=== PATIENT | male | born 1975 | race Two or more races ===

== ENCOUNTER 2023-05-30 18:56 | Inpatient (IN) | payer MEDICARE, MEDICAID ==
[~2023-05-30] VITALS: Ht 182.9 cm; Wt 97.9 kg
[2023-05-30 22:15] VITALS: BP 205/115; PULSE 68; RESP 20; TEMP 97.7; O2SAT 98
[2023-05-30] MEDS ORDERED: DEXTROSE (50%) 50ML SYRG IV PRN (22:15)
[2023-05-30] MEDS ORDERED: MORPHINE SULFATE INJ 2 MG/ml SYRG IV PRN (22:15)
[2023-05-30 22:18] VITALS: BP 169/79; PULSE 70; RESP 20; TEMP 97.7; O2SAT 98
[2023-05-30 23:07] LABS: Basophils # (auto) 0.1 10 ^3/uL (0-0.2); Lymphocytes # (auto) 1.7 10 ^3/uL (0.4-5.4); Monocytes # (auto) 0.7 10 ^3/uL (0-1.3); Nucleated Red Blood Cells % 0.1 %
[2023-05-30 23:09] LABS: Basophils % (auto) 0.5 % (0.0-2.0); Eosinophils # (auto) 0.2 10 ^3/uL (0-0.8); Eosinophils % (auto) 1.3 % (0.0-7.0); Hematocrit 28.7 % (41.0-53.0); Hemoglobin 8.8 g/dL (13.5-17.5); Lymphocytes % (auto) 14.3 % (10.0-50.0); Mean Corpuscular Hemoglobin 21.3 pg (28.0-32.0); Mean Corpuscular Hgb Conc. 30.5 g/dL (32.0-36.0); Mean Corpuscular Volume 69.6 fL (80.0-100.0); Monocytes % (auto) 5.6 % (0.0-12.0); Neutrophils # (auto) 9.5 10 ^3/uL (1.6-8.6); Neutrophils % (auto) 78.3 % (37.0-80.0); Red Blood Cells 4.12 10^6/uL (4.5-5.90); Red Cell Distribution Width 16.6 % (11.8-14.3); White Blood Cell 12.1 10^3/uL (4.4-10.8)
[2023-05-30 23:22] LABS: INR 1.09 (0.9-1.15); Partial Thromboplastin Time 29.1 SEC (24.5-34.5); Prothrombin Time 11.4 sec (9.3-11.8)
[2023-05-30 23:25] LABS: Albumin 3.5 g/dL (3.2-4.8); Alkaline Phosphatase 67 U/L (46-116); Anion Gap 13 (5-15); Aspartate Aminotransferase 20 U/L (13-40); BUN/Creatinine Ratio 3.1 (10.0-20.0); Blood Urea Nitrogen 43 mg/dL (9-23); Calcium 10.2 mg/dL (8.7-10.4); Carbon Dioxide 28 mmol/L (20-30); Chloride 94 mmol/L (98-107); Glucose 132 mg/dL (74-106); Potassium 3.9 mmol/L (3.5-5.1); Sodium 135 mmol/L (136-145)
[2023-05-30 23:26] LABS: Bilirubin, Total < 0.2 mg/dL (0.2-1.0)
[2023-05-30] MEDS: PIPERACILLIN-TAZOB 2.25GM 50 ML IV SCH (23:29)
[2023-05-30] MEDS: cloNIDine HCL 0.1 MG TAB PO ONE (23:30)
[2023-05-30] MEDS: ACCU-CHEK COMFORT CURVE STRIP VI SCH (23:31)
[2023-05-30] MEDS: InsuLIN REG 1unit/0.01ml Soln (100units/ml) SC SCH (23:32)
[2023-05-30 23:42] LABS: Alanine Aminotransferase < 9 U/L (7-40)
[2023-05-31] VITALS (7 sets, daily range): BP systolic 142–209; BP diastolic 82–93; PULSE 69–89; RESP 16–20; TEMP 97.6–98.8; O2SAT 92–98
[2023-05-31] MEDS ORDERED: MEGE1SUS5 PO (07:09)
[2023-05-31] MEDS ORDERED: GLIP5TAB12 PO (07:09)
[2023-05-31] MEDS ORDERED: CALC0.25 PO (07:09)
[2023-05-31] MEDS ORDERED: NIFE90TA75 PO (07:09)
[2023-05-31] MEDS ORDERED: LANT1000 PO (07:09)
[2023-05-31] MEDS ORDERED: SPIR100T4 PO (07:09)
[2023-05-31] MEDS ORDERED: METO2.5T PO (07:09)
[2023-05-31] MEDS ORDERED: MET50T PO (07:09)
[2023-05-31] MEDS ORDERED: LOSA100T58 PO (07:09)
[2023-05-31] MEDS ORDERED: POTA1TAB61 PO (07:09)
[2023-05-31] MEDS: ENALAPRILAT 1.25 MG/ML-1ML VIAL IV ONE (08:11)
[2023-05-31 10:51] LABS: Basophils # (auto) 0.1 10 ^3/uL (0-0.2); Hematocrit 26.1 % (41.0-53.0); Monocytes # (auto) 0.7 10 ^3/uL (0-1.3); Nucleated Red Blood Cells % 0.1 %
[2023-05-31 10:53] LABS: Basophils % (auto) 0.7 % (0.0-2.0); Eosinophils # (auto) 0.3 10 ^3/uL (0-0.8); Eosinophils % (auto) 2.4 % (0.0-7.0); Lymphocytes # (auto) 1.5 10 ^3/uL (0.4-5.4); Lymphocytes % (auto) 14.9 % (10.0-50.0); Mean Corpuscular Hemoglobin 21.3 pg (28.0-32.0); Mean Corpuscular Hgb Conc. 30.8 g/dL (32.0-36.0); Mean Corpuscular Volume 69.2 fL (80.0-100.0); Neutrophils # (auto) 7.8 10 ^3/uL (1.6-8.6); Red Blood Cells 3.77 10^6/uL (4.5-5.90); Red Cell Distribution Width 16.2 % (11.8-14.3); White Blood Cell 10.4 10^3/uL (4.4-10.8)
[2023-05-31] MEDS: NIFEdipine ER 30 MG TAB PO SCH (10:55)
[2023-05-31] MEDS: LOSARTAN POTASSIUM 50 MG TAB PO SCH (10:56)
[2023-05-31] MEDS: SPIRONOLACTONE 25 MG TAB PO SCH (10:56)
[2023-05-31] MEDS: METOPROLOL TARTRATE 50 MG TAB PO SCH (10:57)
[2023-05-31 10:58] LABS: Anion Gap 9 (5-15); Carbon Dioxide 32 mmol/L (20-30); Chloride 96 mmol/L (98-107); Potassium 3.9 mmol/L (3.5-5.1); Sodium 137 mmol/L (136-145)
[2023-05-31 10:59] LABS: Calcium 9.3 mg/dL (8.5-10.1)
[2023-05-31 11:04] LABS: BUN/Creatinine Ratio 3.5 (10.0-20.0); Blood Urea Nitrogen 50 mg/dL (9-23); Glucose 122 mg/dL (74-106)
[2023-05-31] MEDS ORDERED: PERITONEAL DIALYSIS 2.5% SOLN 2,000 ML IP SCH (18:00)
[2023-05-31] MEDS: PERITONEAL DIALYSIS 2.5% SOLN 2,000 ML IP SCH (20:45)
[2023-06-01] VITALS (8 sets, daily range): BP systolic 135–159; BP diastolic 73–97; PULSE 66–79; RESP 12–18; TEMP 98–98.4; O2SAT 90–99
[2023-06-01 06:27] LABS: Calcium 8.8 mg/dL (8.7-10.4); Chloride 93 mmol/L (98-107); Potassium 3.8 mmol/L (3.5-5.1); Sodium 135 mmol/L (136-145)
[2023-06-01 06:28] LABS: Anion Gap 11 (5-15); Carbon Dioxide 31 mmol/L (20-30)
[2023-06-01 06:29] LABS: Basophils # (auto) 0.1 10 ^3/uL (0-0.2); Eosinophils # (auto) 0.3 10 ^3/uL (0-0.8); Lymphocytes % (auto) 16.5 % (10.0-50.0); Monocytes # (auto) 0.8 10 ^3/uL (0-1.3); Neutrophils # (auto) 7.8 10 ^3/uL (1.6-8.6); Nucleated Red Blood Cells % 0.1 %
[2023-06-01 06:31] LABS: Basophils % (auto) 0.7 % (0.0-2.0); Eosinophils % (auto) 2.4 % (0.0-7.0); Hematocrit 26.1 % (41.0-53.0); Hemoglobin 8.1 g/dL (13.5-17.5); Lymphocytes # (auto) 1.7 10 ^3/uL (0.4-5.4); Mean Corpuscular Hemoglobin 21.2 pg (28.0-32.0); Mean Corpuscular Hgb Conc. 31.1 g/dL (32.0-36.0); Mean Corpuscular Volume 68.1 fL (80.0-100.0); Monocytes % (auto) 7.3 % (0.0-12.0); Neutrophils % (auto) 73.1 % (37.0-80.0); Red Blood Cells 3.84 10^6/uL (4.5-5.90); Red Cell Distribution Width 15.9 % (11.8-14.3); White Blood Cell 10.6 10^3/uL (4.4-10.8)
[2023-06-01 06:34] LABS: BUN/Creatinine Ratio 3.6 (10.0-20.0); Blood Urea Nitrogen 53 mg/dL (9-23); Glucose 131 mg/dL (74-106)
[2023-06-01 07:51] LABS: Platelet Estimate Adequate; Target Cell FEW
[2023-06-01 07:52] LABS: Hypochromia Moderate
[2023-06-01 07:53] LABS: Anisocytosis Slight
[2023-06-01] MEDS: PERITONEAL DIALYSIS 2.5% SOLN 2,000 ML IP SCH (13:00)
[2023-06-02] VITALS (7 sets, daily range): BP systolic 145–187; BP diastolic 91–98; PULSE 70–85; RESP 16–21; TEMP 97.6–98.6; O2SAT 92–99
[2023-06-02 06:11] LABS: Chloride 93 mmol/L (98-107); Potassium 3.4 mmol/L (3.5-5.1); Sodium 137 mmol/L (136-145)
[2023-06-02 06:12] LABS: Anion Gap 12 (5-15); Carbon Dioxide 32 mmol/L (20-30)
[2023-06-02 06:13] LABS: Basophils # (auto) 0.1 10 ^3/uL (0-0.2); Eosinophils # (auto) 0.3 10 ^3/uL (0-0.8); Hemoglobin 8.5 g/dL (13.5-17.5); Lymphocytes # (auto) 1.9 10 ^3/uL (0.4-5.4); Nucleated Red Blood Cells % 0.1 %
[2023-06-02 06:16] LABS: Eosinophils % (auto) 3.1 % (0.0-7.0); Hematocrit 26.9 % (41.0-53.0); Lymphocytes % (auto) 19.7 % (10.0-50.0); Mean Corpuscular Hemoglobin 21.6 pg (28.0-32.0); Mean Corpuscular Hgb Conc. 31.5 g/dL (32.0-36.0); Mean Corpuscular Volume 68.5 fL (80.0-100.0); Monocytes # (auto) 0.7 10 ^3/uL (0-1.3); Neutrophils # (auto) 6.7 10 ^3/uL (1.6-8.6); Neutrophils % (auto) 69.2 % (37.0-80.0); Red Blood Cells 3.93 10^6/uL (4.5-5.90); Red Cell Distribution Width 16.4 % (11.8-14.3); White Blood Cell 9.7 10^3/uL (4.4-10.8)
[2023-06-02 06:17] LABS: BUN/Creatinine Ratio 3.8 (10.0-20.0); Blood Urea Nitrogen 54 mg/dL (9-23); Glucose 137 mg/dL (74-106)
[2023-06-02] MEDS ORDERED: VANCOMYCIN PER PHARMACY 0 MG IV SCH (11:45)
[2023-06-02 12:35] LABS: Urine Bacteria NONE SEEN /hpf (None Seen); Urine Blood Negative /uL (Negative); Urine Clarity Clear (Clear); Urine Color Yellow (Yellow); Urine Protein, UAD 3+ (Negative); Urine Specific Gravity 1.015 (1.001-1.035); Urine Urobilinogen Normal (Negative); Urine WBC 4 /hpf (0 - 3); Urine pH 7.5 (5.0-8.0)
[2023-06-02 12:39] LABS: Platelet Estimate Adequate
[2023-06-02 12:44] LABS: Amphetamine Screen, Urine Neg (NEGATIVE); Barbiturate Scree,Urine Neg (NEGATIVE); Benzodiazephine Screen, Urine Neg (NEGATIVE); Cocaine Screen, Urine Neg (NEGATIVE); Opiate Scree,Urine Neg (NEGATIVE)
[2023-06-02 12:45] LABS: Cannabinoid Screen, Urine Neg (NEGATIVE); Phencyclidine Screen, Urine Neg (NEGATIVE)
[2023-06-02 12:49] LABS: Hypochromia Moderate; Target Cell FEW
[2023-06-02] MEDS: VANCOMYCIN 1GM/200ML 200 ML IV ONE ×2 (13:30→13:31)
[2023-06-02] MEDS: ASPirin 81 mg TAB PO SCH (13:30)
[2023-06-02 15:16] LABS: Erythrocyte Sedimentation Rate 113 mm/hr (0-20)
[2023-06-02] MEDS: VANCOMYCIN 500 MG in D5W 5% 100 ML IV ONE (16:01)
[2023-06-02] MEDS ORDERED: GAB100C PO (16:15)
[2023-06-02] MEDS ORDERED: HYDR-4298 PO (16:15)
[2023-06-02] MEDS ORDERED: SEVE800T10 PO (16:15)
[2023-06-02] MEDS ORDERED: SITA25TA3 PO (16:15)
[2023-06-02] MEDS ORDERED: CALC667C PO (16:15)
[2023-06-02] MEDS ORDERED: METO2.5T PO (16:15)
[2023-06-02 16:20] LABS: Triglycerides 77 mg/dL (< 150)
[2023-06-02 16:21] LABS: LDL Cholesterol 76 mg/dL (< 100)
[2023-06-02 16:22] LABS: Cholesterol 124 mg/dL (< 200); HDL Cholesterol 33 mg/dL (40-59)
[2023-06-02] MEDS: CALCIUM ACETATE 667 MG CAP PO SCH (18:01)
[2023-06-02] MEDS: PERITONEAL DIALYSIS 2.5% SOLN 2,000 ML IP SCH (21:47)
[2023-06-02] MEDS: ATORVASTATIN 20 MG TAB PO SCH (21:48)
[2023-06-02] MEDS: CARVEDILOL 12.5 MG TAB PO SCH (21:48)
[2023-06-02] MEDS: GABAPENTIN 100 MG CAP PO SCH (21:48)
[2023-06-03] VITALS (11 sets, daily range): BP systolic 142–167; BP diastolic 69–94; PULSE 77–84; RESP 12–20; TEMP 97.7–99.5; O2SAT 96–100
[2023-06-03 06:21] LABS: Basophils # (auto) 0.1 10 ^3/uL (0-0.2); Eosinophils # (auto) 0.3 10 ^3/uL (0-0.8); Monocytes # (auto) 0.9 10 ^3/uL (0-1.3); Nucleated Red Blood Cells % 0.1 %
[2023-06-03 06:23] LABS: Basophils % (auto) 0.8 % (0.0-2.0); Eosinophils % (auto) 2.4 % (0.0-7.0); Hematocrit 25.8 % (41.0-53.0); Lymphocytes # (auto) 2.1 10 ^3/uL (0.4-5.4); Lymphocytes % (auto) 18.7 % (10.0-50.0); Mean Corpuscular Hemoglobin 21.5 pg (28.0-32.0); Mean Corpuscular Hgb Conc. 31.2 g/dL (32.0-36.0); Mean Corpuscular Volume 68.8 fL (80.0-100.0); Monocytes % (auto) 8.5 % (0.0-12.0); Neutrophils # (auto) 7.7 10 ^3/uL (1.6-8.6); Neutrophils % (auto) 69.6 % (37.0-80.0); Red Blood Cells 3.74 10^6/uL (4.5-5.90); Red Cell Distribution Width 16.4 % (11.8-14.3)
[2023-06-03 06:40] LABS: Albumin 3.4 g/dL (3.2-4.8); Alkaline Phosphatase 65 U/L (46-116); Anion Gap 12 (5-15); Aspartate Aminotransferase 18 U/L (13-40); BUN/Creatinine Ratio 3.9 (10.0-20.0); Blood Urea Nitrogen 52 mg/dL (9-23); Calcium 8.9 mg/dL (8.7-10.4); Carbon Dioxide 31 mmol/L (20-30); Chloride 93 mmol/L (98-107); Creatine Kinase IFCC 246 U/L (46-171); Glucose 105 mg/dL (74-106); Magnesium 2.2 mg/dL (1.6-2.6); Potassium 3.4 mmol/L (3.5-5.1); Sodium 136 mmol/L (136-145)
[2023-06-03 06:41] LABS: Bilirubin, Total < 0.2 mg/dL (0.2-1.0); Phosphorus 5.3 mg/dL (2.4-5.1); Total Protein 7.6 g/dL (5.7-8.2)
[2023-06-03 06:47] LABS: Alanine Aminotransferase < 9 U/L (7-40)
[2023-06-03 07:12] LABS: CRP High Sensitivity 8.66 mg/dL (<1.0)
[2023-06-03] MEDS: LIDOCAINE 2%HCL (LOCAL ANESTH.) INJ 20ML MDV ONE (07:38)
[2023-06-03] MEDS: IODIXANOL 320MG/ML 100ML BTL IV ONE (07:39)
[2023-06-03] MEDS: IOHEXOL 350 MG/ML 100ML IJ ONE (07:39)
[2023-06-03] MEDS: HEPARIN IN NS 1000Units/500mL 1,500 ML ONE (07:39)
[2023-06-03] MEDS: CALCITRIOL 0.25 MCG CAP PO SCH (08:35)
[2023-06-03] MEDS: fentaNYL CITRATE 100 MCG/2 ML VL ONE (10:52)
[2023-06-03] MEDS: ANGIOMAX 250 MG VIAL IV ONE (10:52)
[2023-06-03] MEDS: SODIUM CHL 0.9% 50 ML ONE (10:53)
[2023-06-03] MEDS: MIDAZOLAM HCL 2MG/2ML 2ml VIAL (1mg/ml) ONE (10:53)
[2023-06-03] MEDS: ASPirin 81 mg TAB ONE (13:08)
[2023-06-03] MEDS: hydrALAZINE HCL 20 MG/ML VL ONE (13:08)
[2023-06-03] MEDS: CLOPIDOGREL BISULFATE 75 MG TAB ONE (13:08)
[2023-06-03] MEDS: POTASSIUM CHLORIDE 40 MEQ, LIDOCAINE 1% (LOCAL ANESTH.) 4 ML in SODIUM CHL 0.9% 250 ML IV ONE (17:40)
[2023-06-04] VITALS (8 sets, daily range): BP systolic 124–175; BP diastolic 69–91; PULSE 75–108; RESP 17–20; TEMP 97.8–98.8; O2SAT 91–98
[2023-06-04 07:04] LABS: Anion Gap 10 (5-15); Carbon Dioxide 31 mmol/L (20-30); Chloride 93 mmol/L (98-107); Potassium 4.1 mmol/L (3.5-5.1); Sodium 134 mmol/L (136-145)
[2023-06-04 07:05] LABS: Calcium 8.6 mg/dL (8.5-10.1)
[2023-06-04 07:10] LABS: BUN/Creatinine Ratio 3.8 (10.0-20.0); Blood Urea Nitrogen 53 mg/dL (9-23); Glucose 81 mg/dL (74-106)
[2023-06-04 07:20] LABS: Basophils # (auto) 0.1 10 ^3/uL (0-0.2); Eosinophils # (auto) 0.1 10 ^3/uL (0-0.8); Lymphocytes # (auto) 1.8 10 ^3/uL (0.4-5.4); Nucleated Red Blood Cells % 0.1 %
[2023-06-04 07:24] LABS: Eosinophils % (auto) 1.3 % (0.0-7.0); Hematocrit 25.5 % (41.0-53.0); Hemoglobin 8.1 g/dL (13.5-17.5); Lymphocytes % (auto) 18.9 % (10.0-50.0); Mean Corpuscular Hemoglobin 21.5 pg (28.0-32.0); Mean Corpuscular Hgb Conc. 31.7 g/dL (32.0-36.0); Mean Corpuscular Volume 67.8 fL (80.0-100.0); Monocytes # (auto) 0.6 10 ^3/uL (0-1.3); Monocytes % (auto) 6.5 % (0.0-12.0); Neutrophils # (auto) 7.1 10 ^3/uL (1.6-8.6); Neutrophils % (auto) 72.3 % (37.0-80.0); Red Blood Cells 3.76 10^6/uL (4.5-5.90); Red Cell Distribution Width 16.8 % (11.8-14.3); White Blood Cell 9.8 10^3/uL (4.4-10.8)
[2023-06-04 08:22] LABS: Platelet Estimate Adequate; Target Cell MODERATE
[2023-06-04 08:27] LABS: Hypochromia Moderate
[2023-06-04] MEDS: CLOPIDOGREL BISULFATE 75 MG TAB PO SCH (10:26)
[2023-06-04] MEDS: PERITONEAL DIALYSIS 2.5% SOLN 2,000 ML IP SCH (19:00)
[2023-06-04] MEDS: ONDANSETRON HCL 4 MG/2 ML VIAL IV PRN (22:06)
[2023-06-05] VITALS (9 sets, daily range): BP systolic 132–162; BP diastolic 61–84; PULSE 72–85; RESP 18; TEMP 98.2–99.6; O2SAT 92–97
[2023-06-05 06:09] LABS: Basophils # (auto) 0.1 10 ^3/uL (0-0.2); Eosinophils # (auto) 0.2 10 ^3/uL (0-0.8); Eosinophils % (auto) 2.2 % (0.0-7.0); Monocytes # (auto) 0.8 10 ^3/uL (0-1.3); Nucleated Red Blood Cells % 0.1 %
[2023-06-05 06:13] LABS: Basophils % (auto) 1.1 % (0.0-2.0); Hematocrit 24.3 % (41.0-53.0); Hemoglobin 7.9 g/dL (13.5-17.5); Lymphocytes % (auto) 22.1 % (10.0-50.0); Mean Corpuscular Hemoglobin 22.2 pg (28.0-32.0); Mean Corpuscular Hgb Conc. 32.4 g/dL (32.0-36.0); Mean Corpuscular Volume 68.4 fL (80.0-100.0); Monocytes % (auto) 8.8 % (0.0-12.0); Neutrophils # (auto) 5.8 10 ^3/uL (1.6-8.6); Neutrophils % (auto) 65.8 % (37.0-80.0); Red Blood Cells 3.55 10^6/uL (4.5-5.90); Red Cell Distribution Width 16.6 % (11.8-14.3); White Blood Cell 8.9 10^3/uL (4.4-10.8)
[2023-06-05 06:22] LABS: Anion Gap 10 (5-15); Calcium 8.9 mg/dL (8.5-10.1); Carbon Dioxide 32 mmol/L (20-30); Chloride 93 mmol/L (98-107); Sodium 135 mmol/L (136-145)
[2023-06-05 06:28] LABS: BUN/Creatinine Ratio 3.9 (10.0-20.0); Blood Urea Nitrogen 55 mg/dL (9-23); Glucose 73 mg/dL (74-106)
[2023-06-05] MEDS ORDERED: fentaNYL CITRATE 100 MCG/2 ML VL ONE (09:20)
[2023-06-05] MEDS ORDERED: PROPOFOL 10 MG/ML 20 ML IV ONE (09:40)
[2023-06-05] MEDS: ROPIVACAINE 0.5% (5MG/ML) 20ML AMPULE IJ ONE ×2 (09:47→11:19)
[2023-06-05] MEDS: ceFAZolin 1GM VL ONE (10:20)
[2023-06-05] MEDS: BACITRACIN TOP OINT 1 UD PKG TOP ONE (10:20)
[2023-06-05] MEDS ORDERED: ONDANSETRON HCL 4 MG/2 ML VIAL IV ONE (10:45)
[2023-06-05] MEDS ORDERED: HYDROmorphone HCL 2 MG/ML VL/or syr IV PRN (10:45)
[2023-06-05] MEDS: ceFAZolin 2 GM/D5W50ml 50 ML IV ONE (11:20)
[2023-06-05] MEDS ORDERED: PERITONEAL DIALYSIS 2.5% SOLN 2,000 ML IP SCH (16:00)
[2023-06-06] VITALS (7 sets, daily range): BP systolic 149–175; BP diastolic 5–81; PULSE 81–85; RESP 14–17; TEMP 98.1–100; O2SAT 95–98
[2023-06-06 06:42] LABS: Basophils # (auto) 0.1 10 ^3/uL (0-0.2); Basophils % (auto) 1.1 % (0.0-2.0); Eosinophils # (auto) 0.2 10 ^3/uL (0-0.8); Hematocrit 23.9 % (41.0-53.0); Lymphocytes # (auto) 2.1 10 ^3/uL (0.4-5.4); Monocytes # (auto) 0.8 10 ^3/uL (0-1.3); Monocytes % (auto) 7.9 % (0.0-12.0); Neutrophils # (auto) 7.1 10 ^3/uL (1.6-8.6); Neutrophils % (auto) 68.4 % (37.0-80.0); Nucleated Red Blood Cells % 0.1 %; White Blood Cell 10.3 10^3/uL (4.4-10.8)
[2023-06-06 06:44] LABS: Eosinophils % (auto) 2.2 % (0.0-7.0); Hemoglobin 7.6 g/dL (13.5-17.5); Lymphocytes % (auto) 20.4 % (10.0-50.0); Mean Corpuscular Volume 68.6 fL (80.0-100.0); Red Blood Cells 3.48 10^6/uL (4.5-5.90); Red Cell Distribution Width 16.3 % (11.8-14.3)
[2023-06-06 06:49] LABS: Albumin 3.2 g/dL (3.2-4.8); Alkaline Phosphatase 66 U/L (46-116); Anion Gap 13 (5-15); Aspartate Aminotransferase 17 U/L (13-40); Blood Urea Nitrogen 59 mg/dL (9-23); Calcium 8.5 mg/dL (8.5-10.1); Carbon Dioxide 27 mmol/L (20-30); Chloride 91 mmol/L (98-107); Glucose 114 mg/dL (74-106); Potassium 4.5 mmol/L (3.5-5.1); Sodium 131 mmol/L (136-145)
[2023-06-06 06:50] LABS: Bilirubin, Total < 0.2 mg/dL (0.2-1.0); Total Protein 7.2 g/dL (5.7-8.2)
[2023-06-06 07:00] LABS: Alanine Aminotransferase < 9 U/L (7-40)
[2023-06-06] MEDS ORDERED: DOXY1CAP57 PO (12:51)
[2023-06-06] MEDS ORDERED: CLIN300C70 PO (12:51)
== END 2023-06-06 15:35 | disposition home or self-care (01) | DRG 617 ==
LOC: WEST WING 19:25 → TELE-WESTW 06-04 16:12
PROVIDERS: ADMIT Internal Medicine; ATTEND Student in an Organized Health Care Education/Training Program
PROC: 3E1M39Z Irrigation of Peritoneal Cavity using Dialysate, Percutaneous Approach (ICD-10-PCS; 2023-05-31)
PROC: 3E1M39Z Irrigation of Peritoneal Cavity using Dialysate, Percutaneous Approach (ICD-10-PCS; 2023-06-01)
PROC: 3E1M39Z Irrigation of Peritoneal Cavity using Dialysate, Percutaneous Approach (ICD-10-PCS; 2023-06-02)
PROC: 047M3DZ Dilation of Right Popliteal Artery with Intraluminal Device, Percutaneous Approach (ICD-10-PCS; principal; 2023-06-03)
PROC: 047T3ZZ Dilation of Right Peroneal Artery, Percutaneous Approach (ICD-10-PCS; 2023-06-03)
PROC: B44LZZZ Ultrasonography of Femoral Artery (ICD-10-PCS; 2023-06-03)
PROC: B41F1ZZ Fluoroscopy of Right Lower Extremity Arteries using Low Osmolar Contrast (ICD-10-PCS; 2023-06-03)
PROC: 3E1M39Z Irrigation of Peritoneal Cavity using Dialysate, Percutaneous Approach (ICD-10-PCS; 2023-06-04)
PROC: 0Y6P0Z0 Detachment at Right 1st Toe, Complete, Open Approach (ICD-10-PCS; 2023-06-05)
PROC: 0Y6R0Z0 Detachment at Right 2nd Toe, Complete, Open Approach (ICD-10-PCS; 2023-06-05)
PROC: 3E1M39Z Irrigation of Peritoneal Cavity using Dialysate, Percutaneous Approach (ICD-10-PCS; 2023-06-05)
DX: E11.621 Type 2 diabetes mellitus with foot ulcer (principal); I12.0 Hypertensive chronic kidney disease with stage 5 chronic kidney disease or end stage renal disease; I70.261 Atherosclerosis of native arteries of extremities with gangrene, right leg; N18.6 End stage renal disease; D63.1 Anemia in chronic kidney disease; L97.519 Non-pressure chronic ulcer of other part of right foot with unspecified severity; E11.22 Type 2 diabetes mellitus with diabetic chronic kidney disease; R79.89 Other specified abnormal findings of blood chemistry; E21.1 Secondary hyperparathyroidism, not elsewhere classified; E66.9 Obesity, unspecified; Z99.2 Dependence on renal dialysis; Z79.899 Other long term (current) drug therapy; Z82.5 Family history of asthma and other chronic lower respiratory diseases; Z68.29 Body mass index [BMI] 29.0-29.9, adult; Z98.61 Coronary angioplasty status; E83.39 Other disorders of phosphorus metabolism
CPT/HCPCS: 36415; 37226; 37228; 71045; 73718; 75710; 76937; 80048; 80053; 80061; 80202; 80307; 81001; 82306; 82550; 82962; 83036; 83735; 84100; 84443; 85025; 85610; 85652; 85730; 86141; 86850; 86900; 86901; 87040; 87081; 87086; 93306; 93925; 93926; 99152; C1769; C1894; G0378; J0690; J1815; J2001; J2250; J2405; J2543; J2704; J7060; Q9967

== ENCOUNTER 2023-07-15 16:08 | Inpatient (IN) | payer MEDICARE, MEDICAID ==
[~2023-07-15] VITALS: Ht 182.9 cm; Wt 101.0 kg
[~2023-07-15 16:08] MED LIST: CALC0.25 PO; CALC667C PO; CEFT1PM IV; GAB100C PO; GLIP5TAB21 PO; HYDR-4298 PO; LANT1000 PO; LOSA-535 PO; MEGE1SUS5 PO; MET50T PO; METO2.5T PO; NIFE90TA75 PO; SEVE800T10 PO; SITA25TA3 PO; SPIR100T4 PO
[2023-07-15] MEDS ORDERED: DEXTROSE (50%) 50ML SYRG IV PRN (21:15)
[2023-07-15 21:32] LABS: Basophils # (auto) 0.1 10 ^3/uL (0-0.2); Eosinophils # (auto) 0.1 10 ^3/uL (0-0.8); Hemoglobin 8.1 g/dL (13.5-17.5); Lymphocytes # (auto) 1.6 10 ^3/uL (0.4-5.4); Red Cell Distribution Width 17.1 % (11.8-14.3)
[2023-07-15 21:34] LABS: Basophils % (auto) 1.1 % (0.0-2.0); Hematocrit 26.7 % (41.0-53.0); Lymphocytes % (auto) 15.8 % (10.0-50.0); Mean Corpuscular Hemoglobin 20.8 pg (28.0-32.0); Mean Corpuscular Hgb Conc. 30.3 g/dL (32.0-36.0); Mean Corpuscular Volume 68.4 fL (80.0-100.0); Monocytes # (auto) 1.1 10 ^3/uL (0-1.3); Monocytes % (auto) 10.8 % (0.0-12.0); Neutrophils # (auto) 7.2 10 ^3/uL (1.6-8.6); Neutrophils % (auto) 71.3 % (37.0-80.0); Red Blood Cells 3.91 10^6/uL (4.5-5.90)
[2023-07-15 21:42] LABS: Albumin 3.1 g/dL (3.2-4.8); Alkaline Phosphatase 83 U/L (46-116); Anion Gap 11 (5-15); Aspartate Aminotransferase 19 U/L (13-40); BUN/Creatinine Ratio 3.8 (10.0-20.0); Blood Urea Nitrogen 52 mg/dL (9-23); Calcium 8.5 mg/dL (8.5-10.1); Carbon Dioxide 25 mmol/L (20-30); Chloride 98 mmol/L (98-107); Glucose 88 mg/dL (74-106); Potassium 4.5 mmol/L (3.5-5.1); Sodium 134 mmol/L (136-145)
[2023-07-15 21:43] LABS: Bilirubin, Total < 0.2 mg/dL (0.2-1.0); Total Protein 8.1 g/dL (5.7-8.2)
[2023-07-15 21:46] LABS: Alanine Aminotransferase < 9 U/L (7-40)
[2023-07-15 21:48] LABS: INR 1.23 (0.9-1.15); Prothrombin Time 12.8 sec (9.3-11.8)
[2023-07-15] MEDS: MORPHINE SULFATE 4 MG/ML SYR/VIAL IV ONE (23:08)
[2023-07-15] MEDS: CLINDAMYCIN 600MG IV 50 ML IV SCH (23:09)
[2023-07-15] MEDS: ONDANSETRON HCL 4 MG/2 ML VIAL IV PRN (23:09)
[2023-07-16 01:00] VITALS: PULSE 80; RESP 14; O2SAT 97
[2023-07-16] MEDS: ACCU-CHEK COMFORT CURVE STRIP VI SCH (01:22)
[2023-07-16] MEDS: InsuLIN REG 1unit/0.01ml Soln (100units/ml) SC SCH (01:23)
[2023-07-16] MEDS: MORPHINE SULFATE INJ 2 MG/ml SYRG IV PRN (04:36)
[2023-07-16 05:11] LABS: Chloride 98 mmol/L (98-107); Potassium 4.5 mmol/L (3.5-5.1); Sodium 135 mmol/L (136-145)
[2023-07-16 05:12] LABS: Anion Gap 10 (5-15); Calcium 8.6 mg/dL (8.7-10.4); Carbon Dioxide 27 mmol/L (20-30)
[2023-07-16 05:17] LABS: BUN/Creatinine Ratio 4.3 (10.0-20.0); Blood Urea Nitrogen 60 mg/dL (9-23); Glucose 105 mg/dL (74-106)
[2023-07-16] MEDS: hydrALAZINE HCL 20 MG/ML VL IV PRN (12:52)
[2023-07-16] MEDS: PIPERACILLIN-TAZOB 3.375GM 100 ML IV ONE (12:52)
[2023-07-16 14:07] VITALS: PULSE 87; RESP 20; O2SAT 96
[2023-07-16 15:49] VITALS: BP 166/84; PULSE 89; RESP 17; TEMP 97.6; O2SAT 98
[2023-07-16 16:54] VITALS: BP 166/84; PULSE 89; RESP 17; TEMP 97.6; O2SAT 98
[2023-07-16 18:27] LABS: % Iron Saturation 13.7 % (20-55)
[2023-07-16 20:00] VITALS: PULSE 92; RESP 20; O2SAT 95
[2023-07-16 21:43] VITALS: BP 179/89; PULSE 93; RESP 18; TEMP 99.2; O2SAT 94
[2023-07-16] MEDS: PIPERACILLIN-TAZOB 3.375GM 100 ML IV SCH (22:57)
[2023-07-16] MEDS: GABAPENTIN 100 MG CAP PO SCH (22:57)
[2023-07-16] MEDS: ATORVASTATIN 20 MG TAB PO SCH (22:57)
[2023-07-16] MEDS: METOPROLOL TARTRATE 50 MG TAB PO SCH (22:58)
[2023-07-16] MEDS: metOLazone 5 MG TAB PO SCH (22:58)
[2023-07-16] MEDS: hydrALAZINE HCL 25 MG TAB ONE ×2 (23:12→23:19)
[2023-07-16] MEDS: hydrALAZINE HCL 25 MG TAB PO SCH (23:20)
[2023-07-17] VITALS (8 sets, daily range): BP systolic 130–191; BP diastolic 75–94; PULSE 75–98; RESP 14–20; TEMP 97.9–100.2; O2SAT 93–100
[2023-07-17 06:26] LABS: Basophils # (auto) 0.1 10 ^3/uL (0-0.2); Basophils % (auto) 0.7 % (0.0-2.0); Eosinophils # (auto) 0.2 10 ^3/uL (0-0.8); Eosinophils % (auto) 1.6 % (0.0-7.0); Hematocrit 23.5 % (41.0-53.0); Hemoglobin 7.2 g/dL (13.5-17.5); Lymphocytes # (auto) 1.6 10 ^3/uL (0.4-5.4); Lymphocytes % (auto) 13.1 % (10.0-50.0); Mean Corpuscular Hemoglobin 21.2 pg (28.0-32.0); Mean Corpuscular Hgb Conc. 30.8 g/dL (32.0-36.0); Mean Corpuscular Volume 68.9 fL (80.0-100.0); Monocytes # (auto) 1.5 10 ^3/uL (0-1.3); Monocytes % (auto) 12.3 % (0.0-12.0); Neutrophils # (auto) 8.7 10 ^3/uL (1.6-8.6); Neutrophils % (auto) 72.3 % (37.0-80.0); Nucleated Red Blood Cells % 0.1 %; Red Blood Cells 3.41 10^6/uL (4.5-5.90)
[2023-07-17 06:32] LABS: Anion Gap 11 (5-15); Carbon Dioxide 26 mmol/L (20-30); Chloride 99 mmol/L (98-107); Sodium 136 mmol/L (136-145)
[2023-07-17 06:33] LABS: Calcium 8.3 mg/dL (8.7-10.4)
[2023-07-17 06:37] LABS: Glucose 97 mg/dL (74-106)
[2023-07-17 06:38] LABS: BUN/Creatinine Ratio 4.2 (10.0-20.0); Blood Urea Nitrogen 63 mg/dL (9-23)
[2023-07-17] MEDS: ACCU-CHEK COMFORT CURVE STRIP VI ONE (08:45)
[2023-07-17] MEDS ORDERED: HYDROmorphone HCL 2 MG/ML VL/or syr IV PRN ×2 (08:45)
[2023-07-17] MEDS: METOCLOPRAMIDE HCL 5MG/ml INJ 2ml VIAL IV ONE (08:45)
[2023-07-17] MEDS ORDERED: MORPHINE SULFATE INJ 2 MG/ml SYRG IV PRN (08:45)
[2023-07-17] MEDS: ceFAZolin 2 GM/D5W50ml 50 ML IV ONE (08:50)
[2023-07-17] MEDS ORDERED: ONDANSETRON HCL 4 MG/2 ML VIAL ONE (09:20)
[2023-07-17] MEDS ORDERED: MEPERIDINE HCL (50 MG/ML) 1 ML VIAL ONE (09:20)
[2023-07-17] MEDS ORDERED: PROPOFOL 10 MG/ML 20 ML IV ONE (09:20)
[2023-07-17] MEDS ORDERED: SODIUM CHLORIDE LOCK 10 ML ONE (09:20)
[2023-07-17] MEDS ORDERED: fentaNYL CITRATE 100 MCG/2 ML VL ONE (09:20)
[2023-07-17] MEDS ORDERED: MIDAZOLAM HCL 2MG/2ML 2ml VIAL (1mg/ml) ONE (09:20)
[2023-07-17] MEDS ORDERED: KETAMINE 50mg/ML 1ml syringe ONE (09:20)
[2023-07-17] MEDS: SPIRONOLACTONE 25 MG TAB PO SCH (10:00)
[2023-07-17] MEDS: ROPIVACAINE 0.5% (5MG/ML) 20ML AMPULE IJ ONE (10:04)
[2023-07-17] MEDS: LIDOCAINE 2%HCL (LOCAL ANESTH.) INJ 20ML MDV ONE (10:30)
[2023-07-17] MEDS: HEPARIN IN NS 1000Units/500mL 1,500 ML ONE (10:30)
[2023-07-17] MEDS: IODIXANOL 320MG/ML 100ML BTL IV ONE (10:30)
[2023-07-17] MEDS: NIFEdipine ER 30 MG TAB PO SCH (12:37)
[2023-07-17] MEDS: ASPirin 81 mg TAB PO SCH (12:38)
[2023-07-17] MEDS: CLOPIDOGREL BISULFATE 75 MG TAB PO SCH (12:38)
[2023-07-17] MEDS: LOSARTAN POTASSIUM 50 MG TAB PO SCH (12:38)
[2023-07-17] MEDS: cloNIDine HCL 0.1 MG TAB PO PRN (17:26)
[2023-07-18] VITALS (12 sets, daily range): BP systolic 105–147; BP diastolic 56–84; PULSE 72–86; RESP 12–17; TEMP 97.7–98.4; O2SAT 90–97
[2023-07-18 03:53] LABS: Urine Bacteria FEW /hpf (None Seen); Urine Blood TRACE /uL (Negative); Urine Budding Yeast OCCASIONAL /hpf (None Seen); Urine Clarity Clear (Clear); Urine Color Light-Yellow (Yellow); Urine Protein, UAD 3+ (Negative); Urine Specific Gravity 1.015 (1.001-1.035); Urine Urobilinogen 3 mg/dL (Negative); Urine WBC 2 /hpf (0 - 3)
[2023-07-18 05:49] LABS: Basophils # (auto) 0.1 10 ^3/uL (0-0.2); Basophils % (auto) 0.5 % (0.0-2.0); Eosinophils # (auto) 0.3 10 ^3/uL (0-0.8); Eosinophils % (auto) 2.4 % (0.0-7.0); Hematocrit 24.8 % (41.0-53.0); Hemoglobin 7.5 g/dL (13.5-17.5); Lymphocytes # (auto) 1.2 10 ^3/uL (0.4-5.4); Lymphocytes % (auto) 9.9 % (10.0-50.0); Mean Corpuscular Hemoglobin 20.7 pg (28.0-32.0); Mean Corpuscular Hgb Conc. 30.3 g/dL (32.0-36.0); Mean Corpuscular Volume 68.2 fL (80.0-100.0); Monocytes # (auto) 1.3 10 ^3/uL (0-1.3); Monocytes % (auto) 10.6 % (0.0-12.0); Neutrophils # (auto) 9.2 10 ^3/uL (1.6-8.6); Neutrophils % (auto) 76.6 % (37.0-80.0); Nucleated Red Blood Cells % 0.1 %; Red Blood Cells 3.64 10^6/uL (4.5-5.90); Red Cell Distribution Width 16.8 % (11.8-14.3)
[2023-07-18 06:02] LABS: Amphetamine Screen, Urine Neg (NEGATIVE)
[2023-07-18 06:03] LABS: Barbiturate Scree,Urine Neg (NEGATIVE)
[2023-07-18 06:04] LABS: Benzodiazephine Screen, Urine Neg (NEGATIVE); Cannabinoid Screen, Urine Neg (NEGATIVE); Cocaine Screen, Urine Neg (NEGATIVE); Opiate Scree,Urine Neg (NEGATIVE); Phencyclidine Screen, Urine Neg (NEGATIVE)
[2023-07-18 06:10] LABS: Anion Gap 12 (5-15); Carbon Dioxide 25 mmol/L (20-30); Chloride 98 mmol/L (98-107); Potassium 4.4 mmol/L (3.5-5.1); Sodium 135 mmol/L (136-145)
[2023-07-18 06:11] LABS: Calcium 8.4 mg/dL (8.7-10.4)
[2023-07-18 06:16] LABS: Blood Urea Nitrogen 57 mg/dL (9-23); Glucose 103 mg/dL (74-106); Magnesium 1.9 mg/dL (1.6-2.6)
[2023-07-18] MEDS: LIDOCAINE 2%HCL (LOCAL ANESTH.) INJ 20ML MDV ONE (07:29)
[2023-07-18] MEDS: IOHEXOL 350 MG/ML 100ML IJ ONE ×2 (07:29→07:30)
[2023-07-18] MEDS: GELATIN 1 SPONGE SIZE 50 TOP ONE (07:29)
[2023-07-18] MEDS: HEPARIN IN NS 1000Units/500mL 1,500 ML ONE (07:30)
[2023-07-18] MEDS: SODIUM CHL 0.9% 50 ML ONE (08:08)
[2023-07-18] MEDS: ANGIOMAX 250 MG VIAL IV ONE (08:08)
[2023-07-18] MEDS: MIDAZOLAM HCL 2MG/2ML 2ml VIAL (1mg/ml) ONE (08:08)
[2023-07-18] MEDS: fentaNYL CITRATE 100 MCG/2 ML VL ONE (08:08)
[2023-07-18] MEDS: IODIXANOL 320MG/ML 100ML BTL IV ONE ×2 (09:08→10:01)
[2023-07-18] MEDS: FUROSEMIDE 40 MG TAB PO SCH (12:20)
[2023-07-19] VITALS (8 sets, daily range): BP systolic 114–157; BP diastolic 65–78; PULSE 73–99; RESP 12–19; TEMP 98–99.4; O2SAT 91–99
[2023-07-19 05:42] LABS: Calcium 8.3 mg/dL (8.7-10.4); Chloride 95 mmol/L (98-107); Potassium 3.9 mmol/L (3.5-5.1); Sodium 133 mmol/L (136-145)
[2023-07-19 05:43] LABS: Anion Gap 12 (5-15); Carbon Dioxide 26 mmol/L (20-30)
[2023-07-19 05:48] LABS: Blood Urea Nitrogen 52 mg/dL (9-23); Glucose 136 mg/dL (74-106)
[2023-07-19 05:49] LABS: Magnesium 1.8 mg/dL (1.6-2.6)
[2023-07-19 05:54] LABS: Basophils # (auto) 0.1 10 ^3/uL (0-0.2); Eosinophils # (auto) 0.2 10 ^3/uL (0-0.8); Hemoglobin 7.3 g/dL (13.5-17.5); Lymphocytes # (auto) 1.2 10 ^3/uL (0.4-5.4); Mean Corpuscular Hgb Conc. 29.9 g/dL (32.0-36.0); Nucleated Red Blood Cells % 0.1 %
[2023-07-19 05:56] LABS: Basophils % (auto) 0.6 % (0.0-2.0); Eosinophils % (auto) 1.6 % (0.0-7.0); Hematocrit 24.5 % (41.0-53.0); Lymphocytes % (auto) 9.9 % (10.0-50.0); Mean Corpuscular Hemoglobin 20.2 pg (28.0-32.0); Mean Corpuscular Volume 67.4 fL (80.0-100.0); Monocytes # (auto) 1.3 10 ^3/uL (0-1.3); Monocytes % (auto) 10.8 % (0.0-12.0); Neutrophils # (auto) 9.4 10 ^3/uL (1.6-8.6); Neutrophils % (auto) 77.1 % (37.0-80.0); Red Blood Cells 3.63 10^6/uL (4.5-5.90); Red Cell Distribution Width 17.1 % (11.8-14.3); White Blood Cell 12.1 10^3/uL (4.4-10.8)
[2023-07-19] MEDS: EPOETIN ALFA-EPBX 10,000 UNIT/1ML VIAL SC ONE (22:18)
[2023-07-20] VITALS (8 sets, daily range): BP systolic 160–190; BP diastolic 85–119; PULSE 78–95; RESP 17–22; TEMP 97.9–99.7; O2SAT 93–100
[2023-07-20 05:35] LABS: Basophils # (auto) 0.1 10 ^3/uL (0-0.2); Basophils % (auto) 0.7 % (0.0-2.0); Eosinophils # (auto) 0.2 10 ^3/uL (0-0.8); Hemoglobin 7.9 g/dL (13.5-17.5); Monocytes # (auto) 0.9 10 ^3/uL (0-1.3)
[2023-07-20 05:37] LABS: Eosinophils % (auto) 1.7 % (0.0-7.0); Hematocrit 26.8 % (41.0-53.0); Lymphocytes # (auto) 1.2 10 ^3/uL (0.4-5.4); Lymphocytes % (auto) 9.9 % (10.0-50.0); Mean Corpuscular Hgb Conc. 29.7 g/dL (32.0-36.0); Mean Corpuscular Volume 67.3 fL (80.0-100.0); Neutrophils # (auto) 9.4 10 ^3/uL (1.6-8.6); Neutrophils % (auto) 79.7 % (37.0-80.0); Nucleated Red Blood Cells % 0.1 %; Red Blood Cells 3.98 10^6/uL (4.5-5.90); Red Cell Distribution Width 17.1 % (11.8-14.3); White Blood Cell 11.8 10^3/uL (4.4-10.8)
[2023-07-20 05:46] LABS: Chloride 94 mmol/L (98-107); Potassium 3.8 mmol/L (3.5-5.1); Sodium 131 mmol/L (136-145)
[2023-07-20 05:47] LABS: Anion Gap 11 (5-15); Calcium 8.2 mg/dL (8.5-10.1); Carbon Dioxide 26 mmol/L (20-30)
[2023-07-20 05:53] LABS: BUN/Creatinine Ratio 3.9 (10.0-20.0); Blood Urea Nitrogen 49 mg/dL (9-23); Glucose 153 mg/dL (74-106)
[2023-07-20 06:28] LABS: Hypochromia Slight; Platelet Estimate Adequate; Target Cell MODERATE
[2023-07-21 01:00] VITALS: BP 155/90; PULSE 78; RESP 20; TEMP 98.6; O2SAT 96
[2023-07-21 05:00] VITALS: BP 176/90; PULSE 77; RESP 20; TEMP 98.3; O2SAT 94
[2023-07-21 06:16] LABS: Basophils # (auto) 0.1 10 ^3/uL (0-0.2); Eosinophils # (auto) 0.2 10 ^3/uL (0-0.8); Eosinophils % (auto) 1.6 % (0.0-7.0); Hemoglobin 7.7 g/dL (13.5-17.5); Neutrophils # (auto) 8.2 10 ^3/uL (1.6-8.6); White Blood Cell 10.8 10^3/uL (4.4-10.8)
[2023-07-21 06:21] LABS: Chloride 94 mmol/L (98-107); Potassium 3.7 mmol/L (3.5-5.1); Sodium 133 mmol/L (136-145)
[2023-07-21 06:22] LABS: Anion Gap 12 (5-15); Carbon Dioxide 27 mmol/L (20-30)
[2023-07-21 06:23] LABS: Basophils % (auto) 0.7 % (0.0-2.0); Hematocrit 24.2 % (41.0-53.0); Lymphocytes # (auto) 1.4 10 ^3/uL (0.4-5.4); Lymphocytes % (auto) 13.2 % (10.0-50.0); Mean Corpuscular Hemoglobin 21.3 pg (28.0-32.0); Mean Corpuscular Hgb Conc. 31.7 g/dL (32.0-36.0); Mean Corpuscular Volume 67.2 fL (80.0-100.0); Monocytes # (auto) 0.9 10 ^3/uL (0-1.3); Monocytes % (auto) 8.4 % (0.0-12.0); Neutrophils % (auto) 76.1 % (37.0-80.0); Nucleated Red Blood Cells % 0.1 %; Red Blood Cells 3.59 10^6/uL (4.5-5.90); Red Cell Distribution Width 16.8 % (11.8-14.3)
[2023-07-21 06:27] LABS: BUN/Creatinine Ratio 3.9 (10.0-20.0); Blood Urea Nitrogen 51 mg/dL (9-23); Glucose 110 mg/dL (74-106)
[2023-07-21 09:00] VITALS: BP 174/85; PULSE 77; RESP 18; TEMP 98.1; O2SAT 96
[2023-07-21 13:00] VITALS: BP 165/95; PULSE 80; RESP 16; TEMP 98.3; O2SAT 98
[2023-07-21] MEDS: MICAFUNGIN SODIUM 100 MG in SODIUM CHL 0.9% 100 ML IV SCH (15:37)
[2023-07-21 17:00] VITALS: BP 148/73; PULSE 78; RESP 17; TEMP 98.1; O2SAT 97
[2023-07-21 21:00] VITALS: BP 168/88; PULSE 81; RESP 20; TEMP 98.1; O2SAT 95
[2023-07-22] VITALS (7 sets, daily range): BP systolic 142–175; BP diastolic 69–90; PULSE 66–77; RESP 16–22; TEMP 98–98.4; O2SAT 92–99
[2023-07-22 06:50] LABS: Basophils # (auto) 0.1 10 ^3/uL (0-0.2); Eosinophils # (auto) 0.1 10 ^3/uL (0-0.8); Eosinophils % (auto) 1.3 % (0.0-7.0); Hemoglobin 8.7 g/dL (13.5-17.5); Monocytes # (auto) 0.9 10 ^3/uL (0-1.3); Neutrophils % (auto) 75.3 % (37.0-80.0)
[2023-07-22 06:52] LABS: Basophils % (auto) 0.7 % (0.0-2.0); Hematocrit 27.9 % (41.0-53.0); Lymphocytes # (auto) 1.5 10 ^3/uL (0.4-5.4); Lymphocytes % (auto) 14.3 % (10.0-50.0); Mean Corpuscular Hemoglobin 21.1 pg (28.0-32.0); Mean Corpuscular Hgb Conc. 31.3 g/dL (32.0-36.0); Mean Corpuscular Volume 67.5 fL (80.0-100.0); Monocytes % (auto) 8.4 % (0.0-12.0); Neutrophils # (auto) 8.1 10 ^3/uL (1.6-8.6); Red Blood Cells 4.13 10^6/uL (4.5-5.90); White Blood Cell 10.7 10^3/uL (4.4-10.8)
[2023-07-22 07:04] LABS: Anion Gap 13 (5-15); Calcium 8.4 mg/dL (8.5-10.1); Carbon Dioxide 28 mmol/L (20-30); Chloride 93 mmol/L (98-107); Potassium 3.5 mmol/L (3.5-5.1); Sodium 134 mmol/L (136-145)
[2023-07-22 07:10] LABS: Glucose 77 mg/dL (74-106)
[2023-07-22 07:11] LABS: BUN/Creatinine Ratio 3.7 (10.0-20.0); Blood Urea Nitrogen 47 mg/dL (9-23)
[2023-07-22] MEDS ORDERED: CIPROFLOXACIN 400MG/200ML 200 ML IV ONE (09:45)
[2023-07-22] MEDS ORDERED: CIPROFLOXACIN 400MG/200ML 200 ML IV SCH (10:00)
[2023-07-22] MEDS ORDERED: CIPR-214 PO (11:27)
[2023-07-22] MEDS: Juven Orange Powder PACKET 27.5gm PO SCH (19:28)
[2023-07-22] MEDS: CIPROFLOXACIN 400MG/200ML 200 ML IV SCH (22:17)
[2023-07-23] VITALS (9 sets, daily range): BP systolic 124–149; BP diastolic 65–82; PULSE 68–80; RESP 16–18; TEMP 98–98.6; O2SAT 93–100
[2023-07-23 06:43] LABS: Basophils # (auto) 0.1 10 ^3/uL (0-0.2); Eosinophils # (auto) 0.2 10 ^3/uL (0-0.8)
[2023-07-23 06:44] LABS: Calcium 8.3 mg/dL (8.5-10.1); Chloride 93 mmol/L (98-107); Potassium 3.5 mmol/L (3.5-5.1); Sodium 132 mmol/L (136-145)
[2023-07-23 06:45] LABS: Anion Gap 11 (5-15); Basophils % (auto) 0.6 % (0.0-2.0); Carbon Dioxide 28 mmol/L (20-30); Eosinophils % (auto) 1.7 % (0.0-7.0); Hematocrit 28.1 % (41.0-53.0); Lymphocytes # (auto) 1.6 10 ^3/uL (0.4-5.4); Lymphocytes % (auto) 14.9 % (10.0-50.0); Mean Corpuscular Hemoglobin 20.9 pg (28.0-32.0); Mean Corpuscular Hgb Conc. 30.8 g/dL (32.0-36.0); Mean Corpuscular Volume 67.7 fL (80.0-100.0); Monocytes # (auto) 0.7 10 ^3/uL (0-1.3); Monocytes % (auto) 6.7 % (0.0-12.0); Neutrophils # (auto) 8.3 10 ^3/uL (1.6-8.6); Neutrophils % (auto) 76.1 % (37.0-80.0); Nucleated Red Blood Cells % 0.1 %; Red Blood Cells 4.15 10^6/uL (4.5-5.90); Red Cell Distribution Width 17.4 % (11.8-14.3); White Blood Cell 10.9 10^3/uL (4.4-10.8)
[2023-07-23 06:50] LABS: BUN/Creatinine Ratio 3.9 (10.0-20.0); Blood Urea Nitrogen 48 mg/dL (9-23); Glucose 105 mg/dL (74-106)
[2023-07-23 07:06] LABS: Hemoglobin 8.7 g/dL (13.5-17.5)
[2023-07-23 07:45] LABS: Magnesium 1.7 mg/dL (1.6-2.6)
[2023-07-23] MEDS: POTASSIUM EFFERVESENT TAB 25 MEQ PO ONE (10:29)
[2023-07-23] MEDS: MAGNESIUM OXIDE 400 MG TAB PO ONE (10:29)
[2023-07-23] MEDS: ACETAMINOPHEN 325 MG TAB PO PRN (16:49)
[2023-07-24] VITALS (11 sets, daily range): BP systolic 132–165; BP diastolic 72–108; PULSE 67–79; RESP 14–18; TEMP 97.5–98.7; O2SAT 92–98
[2023-07-24] MEDS ORDERED: D5W 5% IV SCH
[2023-07-24] MEDS ORDERED: CEFTOLOZANE TAZOB IV SCH
[2023-07-24 05:39] LABS: Basophils # (auto) 0.1 10 ^3/uL (0-0.2); Basophils % (auto) 0.6 % (0.0-2.0); Eosinophils # (auto) 0.1 10 ^3/uL (0-0.8); Eosinophils % (auto) 0.9 % (0.0-7.0); Hemoglobin 8.5 g/dL (13.5-17.5); Lymphocytes # (auto) 1.5 10 ^3/uL (0.4-5.4); Monocytes # (auto) 0.9 10 ^3/uL (0-1.3); Nucleated Red Blood Cells % 0.1 %
[2023-07-24 05:41] LABS: Anion Gap 12 (5-15); Carbon Dioxide 28 mmol/L (20-30); Chloride 93 mmol/L (98-107); Potassium 3.3 mmol/L (3.5-5.1); Sodium 133 mmol/L (136-145)
[2023-07-24 05:43] LABS: Hematocrit 26.9 % (41.0-53.0); Lymphocytes % (auto) 14.4 % (10.0-50.0); Mean Corpuscular Hemoglobin 21.3 pg (28.0-32.0); Mean Corpuscular Hgb Conc. 31.7 g/dL (32.0-36.0); Mean Corpuscular Volume 67.4 fL (80.0-100.0); Monocytes % (auto) 8.3 % (0.0-12.0); Neutrophils # (auto) 8.1 10 ^3/uL (1.6-8.6); Neutrophils % (auto) 75.8 % (37.0-80.0); Red Blood Cells 3.99 10^6/uL (4.5-5.90); Red Cell Distribution Width 17.2 % (11.8-14.3); White Blood Cell 10.6 10^3/uL (4.4-10.8)
[2023-07-24 05:46] LABS: Glucose 125 mg/dL (74-106)
[2023-07-24 05:47] LABS: BUN/Creatinine Ratio 3.6 (10.0-20.0); Blood Urea Nitrogen 45 mg/dL (9-23); Magnesium 1.7 mg/dL (1.6-2.6)
[2023-07-24] MEDS: ceFAZolin 2 GM/D5W50ml 50 ML IV ONE (09:10)
[2023-07-24] MEDS ORDERED: PROPOFOL 10 MG/ML 20 ML IV ONE ×2 (09:32→10:56)
[2023-07-24] MEDS ORDERED: KETAMINE 50mg/ML 1ml syringe ONE (09:32)
[2023-07-24] MEDS ORDERED: LIDOCAINE 1% INJ PF 5ML AMP ONE (09:32)
[2023-07-24] MEDS ORDERED: DexAMETHasone SOD PHOS 10MG/1ML VIAL INJ ONE (09:32)
[2023-07-24] MEDS ORDERED: GLYCOPYRROLATE 0.2 MG/ML 1ML VIAL ONE (09:32)
[2023-07-24] MEDS ORDERED: ONDANSETRON HCL 4 MG/2 ML VIAL ONE (09:32)
[2023-07-24] MEDS: ROPIVACAINE 0.5% (5MG/ML) 20ML AMPULE IJ ONE (09:53)
[2023-07-24] MEDS: ceFAZolin 1GM VL ONE (10:04)
[2023-07-24] MEDS ORDERED: HYDROmorphone HCL 2 MG/ML VL/or syr IV PRN (11:30)
[2023-07-24] MEDS ORDERED: hydrALAZINE HCL 20 MG/ML VL IV PRN (11:30)
[2023-07-24] MEDS ORDERED: fentaNYL CITRATE 100 MCG/2 ML VL IV PRN (11:30)
[2023-07-24] MEDS ORDERED: NALOXONE HCL 0.4 MG/ML VIAL IV PRN (11:30)
[2023-07-24] MEDS ORDERED: LABETALOL HCL 5 MG/ML 4ML SYRINGE IV PRN (11:30)
[2023-07-24] MEDS ORDERED: ONDANSETRON HCL 4 MG/2 ML VIAL IV PRN (11:30)
[2023-07-24] MEDS ORDERED: ePHEDrine SULFATE 50 MG/ML AMP IV PRN (11:30)
[2023-07-24] MEDS ORDERED: FLUMAZENIL 0.1 MG/ML INJ 10ML MDV IV PRN (11:30)
[2023-07-24] MEDS: MAGNESIUM SULFATE 1GM/100ML 100 ML IV ONE (12:07)
[2023-07-24] MEDS: LEVOTHYROXINE SODIUM 50 MCG TAB PO ONE (14:01)
[2023-07-24] MEDS: POTASSIUM CHL 20MEQ/100ML 100 ML IV SCH (14:02)
[2023-07-24 15:20] LABS: INR 1.34 (0.9-1.15); Partial Thromboplastin Time 31.3 SEC (24.5-34.5); Prothrombin Time 13.9 sec (9.3-11.8)
[2023-07-24] MEDS ORDERED: AZTREONAM 1GM INJ 1 GM in D5W 5% 50 ML IV SCH (15:45)
[2023-07-24] MEDS ORDERED: CIPROFLOXACIN 400MG/200ML 200 ML IV SCH (16:00)
[2023-07-24] MEDS: CEFTOLOZANE TAZOB IV ONE (18:01)
[2023-07-24] MEDS: D5W 5% IV ONE (18:01)
[2023-07-24] MEDS: CEFTOLOZANE TAZOB IV SCH (23:37)
[2023-07-24] MEDS: D5W 5% IV SCH (23:37)
[2023-07-25] VITALS (7 sets, daily range): BP systolic 137–168; BP diastolic 62–87; PULSE 65–78; RESP 16–20; TEMP 97.7–98.5; O2SAT 91–97
[2023-07-25 06:17] LABS: Eosinophils # (auto) 0 10 ^3/uL (0-0.8); Mean Corpuscular Volume 67.6 fL (80.0-100.0); Monocytes # (auto) 0.8 10 ^3/uL (0-1.3); Red Cell Distribution Width 17.4 % (11.8-14.3)
[2023-07-25 06:19] LABS: Basophils # (auto) 0 10 ^3/uL (0-0.2); Basophils % (auto) 0.5 % (0.0-2.0); Hemoglobin 9.9 g/dL (13.5-17.5); Lymphocytes % (auto) 18.8 % (10.0-50.0); Mean Corpuscular Hgb Conc. 31.1 g/dL (32.0-36.0); Monocytes % (auto) 7.6 % (0.0-12.0); Neutrophils # (auto) 7.7 10 ^3/uL (1.6-8.6); Neutrophils % (auto) 73.1 % (37.0-80.0); Nucleated Red Blood Cells % 0.2 %; Red Blood Cells 4.73 10^6/uL (4.5-5.90); White Blood Cell 10.5 10^3/uL (4.4-10.8)
[2023-07-25] MEDS: LEVOTHYROXINE SODIUM 50 MCG TAB PO SCH (06:21)
[2023-07-25 06:24] LABS: Anion Gap 13 (5-15); Carbon Dioxide 26 mmol/L (20-30); Chloride 94 mmol/L (98-107); Potassium 3.7 mmol/L (3.5-5.1); Sodium 133 mmol/L (136-145)
[2023-07-25 06:26] LABS: Calcium 8.3 mg/dL (8.5-10.1)
[2023-07-25 06:30] LABS: Glucose 159 mg/dL (74-106)
[2023-07-25 06:31] LABS: BUN/Creatinine Ratio 3.6 (10.0-20.0); Blood Urea Nitrogen 44 mg/dL (9-23)
[2023-07-25] MEDS ORDERED: CLOP75TA70 PO (12:42)
[2023-07-25] MEDS ORDERED: FURO40TA4 PO (12:42)
[2023-07-25] MEDS ORDERED: ASPI-325 PO (12:42)
[2023-07-25] MEDS ORDERED: LEV50T PO (12:42)
[2023-07-25] MEDS ORDERED: ATOR20TA50 PO (12:42)
[2023-07-25] MEDS: LIDOCAINE 1% (LOCAL ANESTH.) PF 5ml SDV ID ONE (14:54)
[2023-07-25] MEDS: SODIUM CHLOR 0.9% PF (SALINE LOCK) 10ML VIAL/SYR IV SCH (22:00)
[2023-07-26] VITALS (10 sets, daily range): BP systolic 144–177; BP diastolic 70–88; PULSE 69–82; RESP 16–20; TEMP 97.8–99; O2SAT 94–97
[2023-07-26 06:51] LABS: Basophils # (auto) 0.1 10 ^3/uL (0-0.2); Eosinophils # (auto) 0.1 10 ^3/uL (0-0.8); Eosinophils % (auto) 0.8 % (0.0-7.0); Hemoglobin 8.9 g/dL (13.5-17.5)
[2023-07-26 06:56] LABS: Basophils % (auto) 0.8 % (0.0-2.0); Calcium 8.3 mg/dL (8.5-10.1); Chloride 93 mmol/L (98-107); Hematocrit 29.3 % (41.0-53.0); Lymphocytes # (auto) 1.9 10 ^3/uL (0.4-5.4); Lymphocytes % (auto) 17.6 % (10.0-50.0); Mean Corpuscular Hgb Conc. 30.6 g/dL (32.0-36.0); Mean Corpuscular Volume 68.7 fL (80.0-100.0); Monocytes # (auto) 0.8 10 ^3/uL (0-1.3); Monocytes % (auto) 7.3 % (0.0-12.0); Neutrophils # (auto) 8.1 10 ^3/uL (1.6-8.6); Neutrophils % (auto) 73.5 % (37.0-80.0); Nucleated Red Blood Cells % 0.1 %; Potassium 3.6 mmol/L (3.5-5.1); Red Blood Cells 4.26 10^6/uL (4.5-5.90); Red Cell Distribution Width 17.9 % (11.8-14.3); Sodium 132 mmol/L (136-145); White Blood Cell 11.1 10^3/uL (4.4-10.8)
[2023-07-26 06:57] LABS: Anion Gap 13 (5-15); Carbon Dioxide 26 mmol/L (20-30)
[2023-07-26 07:02] LABS: BUN/Creatinine Ratio 3.8 (10.0-20.0); Blood Urea Nitrogen 46 mg/dL (9-23); Glucose 109 mg/dL (74-106)
[2023-07-27] VITALS (8 sets, daily range): BP systolic 139–175; BP diastolic 47–83; PULSE 74–104; RESP 17–20; TEMP 98.1–98.9; O2SAT 93–100
[2023-07-27 10:29] LABS: Eosinophils # (auto) 0.2 10 ^3/uL (0-0.8); Mean Corpuscular Hemoglobin 20.3 pg (28.0-32.0); Nucleated Red Blood Cells % 0.1 %
[2023-07-27 10:31] LABS: Basophils # (auto) 0.2 10 ^3/uL (0-0.2); Basophils % (auto) 1.4 % (0.0-2.0); Eosinophils % (auto) 1.3 % (0.0-7.0); Hematocrit 28.4 % (41.0-53.0); Hemoglobin 8.5 g/dL (13.5-17.5); Lymphocytes # (auto) 2.1 10 ^3/uL (0.4-5.4); Lymphocytes % (auto) 17.4 % (10.0-50.0); Mean Corpuscular Hgb Conc. 30.1 g/dL (32.0-36.0); Mean Corpuscular Volume 67.6 fL (80.0-100.0); Monocytes # (auto) 0.7 10 ^3/uL (0-1.3); Monocytes % (auto) 6.1 % (0.0-12.0); Neutrophils # (auto) 8.9 10 ^3/uL (1.6-8.6); Neutrophils % (auto) 73.8 % (37.0-80.0); White Blood Cell 12.1 10^3/uL (4.4-10.8)
[2023-07-27 10:39] LABS: Chloride 93 mmol/L (98-107); Potassium 3.8 mmol/L (3.5-5.1); Sodium 130 mmol/L (136-145)
[2023-07-27 10:40] LABS: Anion Gap 12 (5-15); Carbon Dioxide 25 mmol/L (20-30)
[2023-07-27 10:45] LABS: BUN/Creatinine Ratio 4.1 (10.0-20.0); Blood Urea Nitrogen 52 mg/dL (9-23); Glucose 137 mg/dL (74-106)
[2023-07-27 11:29] LABS: Hypochromia Marked; Platelet Estimate Adequate
[2023-07-28] VITALS (8 sets, daily range): BP systolic 144–162; BP diastolic 60–85; PULSE 79–83; RESP 14–20; TEMP 98.3–98.7; O2SAT 91–100
[2023-07-28 05:44] LABS: Basophils # (auto) 0.1 10 ^3/uL (0-0.2); Basophils % (auto) 0.6 % (0.0-2.0); Eosinophils # (auto) 0.2 10 ^3/uL (0-0.8); Monocytes # (auto) 0.9 10 ^3/uL (0-1.3); Nucleated Red Blood Cells % 0.1 %
[2023-07-28 05:46] LABS: Eosinophils % (auto) 1.6 % (0.0-7.0); Hemoglobin 9.4 g/dL (13.5-17.5); Lymphocytes # (auto) 1.8 10 ^3/uL (0.4-5.4); Lymphocytes % (auto) 17.4 % (10.0-50.0); Mean Corpuscular Hemoglobin 20.6 pg (28.0-32.0); Mean Corpuscular Hgb Conc. 30.4 g/dL (32.0-36.0); Mean Corpuscular Volume 67.6 fL (80.0-100.0); Monocytes % (auto) 8.1 % (0.0-12.0); Neutrophils # (auto) 7.6 10 ^3/uL (1.6-8.6); Neutrophils % (auto) 72.3 % (37.0-80.0); Red Blood Cells 4.58 10^6/uL (4.5-5.90); White Blood Cell 10.5 10^3/uL (4.4-10.8)
[2023-07-28 06:13] LABS: Alkaline Phosphatase 92 U/L (46-116); Anion Gap 12 (5-15); BUN/Creatinine Ratio 5.1 (10.0-20.0); Calcium 8.3 mg/dL (8.5-10.1); Carbon Dioxide 26 mmol/L (20-30); Chloride 94 mmol/L (98-107); Glucose 77 mg/dL (74-106); Potassium 3.5 mmol/L (3.5-5.1); Sodium 132 mmol/L (136-145)
[2023-07-28 06:15] LABS: Aspartate Aminotransferase 17 U/L (13-40); Bilirubin, Total < 0.2 mg/dL (0.2-1.0); Total Protein 7.5 g/dL (5.7-8.2)
[2023-07-28 06:22] LABS: Alanine Aminotransferase < 9 U/L (7-40); Blood Urea Nitrogen 62 mg/dL (9-23)
[2023-07-29] VITALS (8 sets, daily range): BP systolic 136–170; BP diastolic 79–88; PULSE 76–83; RESP 16–20; TEMP 97.7–98.6; O2SAT 95–98
[2023-07-30] VITALS (7 sets, daily range): BP systolic 140–179; BP diastolic 75–86; PULSE 75–85; RESP 17–22; TEMP 97.8–98.3; O2SAT 93–97
[2023-07-30 05:35] LABS: Basophils # (auto) 0.1 10 ^3/uL (0-0.2); Eosinophils # (auto) 0.4 10 ^3/uL (0-0.8); Hematocrit 30.4 % (41.0-53.0); Hemoglobin 9.5 g/dL (13.5-17.5); Lymphocytes # (auto) 1.2 10 ^3/uL (0.4-5.4); Monocytes # (auto) 0.7 10 ^3/uL (0-1.3)
[2023-07-30 05:41] LABS: Basophils % (auto) 0.8 % (0.0-2.0); Eosinophils % (auto) 3.8 % (0.0-7.0); Mean Corpuscular Hemoglobin 20.9 pg (28.0-32.0); Mean Corpuscular Hgb Conc. 31.1 g/dL (32.0-36.0); Mean Corpuscular Volume 67.2 fL (80.0-100.0); Monocytes % (auto) 7.7 % (0.0-12.0); Neutrophils % (auto) 74.7 % (37.0-80.0); Nucleated Red Blood Cells % 0.1 %; Red Blood Cells 4.53 10^6/uL (4.5-5.90); Red Cell Distribution Width 18.6 % (11.8-14.3); White Blood Cell 9.4 10^3/uL (4.4-10.8)
[2023-07-30 05:44] LABS: Alkaline Phosphatase 95 U/L (46-116); Anion Gap 12 (5-15); Blood Urea Nitrogen 68 mg/dL (9-23); Calcium 8.3 mg/dL (8.7-10.4); Carbon Dioxide 25 mmol/L (20-30); Chloride 94 mmol/L (98-107); Potassium 3.4 mmol/L (3.5-5.1); Sodium 131 mmol/L (136-145)
[2023-07-30 05:45] LABS: Aspartate Aminotransferase 19 U/L (13-40); Bilirubin, Total < 0.2 mg/dL (0.2-1.0); Total Protein 7.6 g/dL (5.7-8.2)
[2023-07-30 07:23] LABS: Glucose 206 mg/dL (74-106)
[2023-07-30 07:24] LABS: Alanine Aminotransferase < 9 U/L (7-40)
[2023-07-30] MEDS: POTASSIUM CHL 20 Meq TABLET PO ONE (13:25)
[2023-07-31] VITALS (9 sets, daily range): BP systolic 134–166; BP diastolic 74–92; PULSE 68–85; RESP 18–22; TEMP 97.3–99; O2SAT 94–100
[2023-07-31 05:33] LABS: Basophils # (auto) 0.1 10 ^3/uL (0-0.2); Hemoglobin 9.1 g/dL (13.5-17.5); Neutrophils # (auto) 7.6 10 ^3/uL (1.6-8.6); Nucleated Red Blood Cells % 0.1 %
[2023-07-31 05:41] LABS: Basophils % (auto) 0.8 % (0.0-2.0); Eosinophils # (auto) 0.4 10 ^3/uL (0-0.8); Eosinophils % (auto) 3.5 % (0.0-7.0); Hematocrit 29.1 % (41.0-53.0); Lymphocytes # (auto) 1.5 10 ^3/uL (0.4-5.4); Lymphocytes % (auto) 14.4 % (10.0-50.0); Mean Corpuscular Hgb Conc. 31.1 g/dL (32.0-36.0); Mean Corpuscular Volume 67.7 fL (80.0-100.0); Monocytes % (auto) 9.7 % (0.0-12.0); Neutrophils % (auto) 71.6 % (37.0-80.0); Red Blood Cells 4.31 10^6/uL (4.5-5.90); Red Cell Distribution Width 18.5 % (11.8-14.3); White Blood Cell 10.6 10^3/uL (4.4-10.8)
[2023-07-31 05:51] LABS: Anion Gap 12 (5-15); Carbon Dioxide 25 mmol/L (20-30); Chloride 95 mmol/L (98-107); Potassium 3.8 mmol/L (3.5-5.1); Sodium 132 mmol/L (136-145)
[2023-07-31 05:52] LABS: Calcium 8.5 mg/dL (8.7-10.4)
[2023-07-31 05:57] LABS: BUN/Creatinine Ratio 5.7 (10.0-20.0); Blood Urea Nitrogen 64 mg/dL (9-23); Glucose 135 mg/dL (74-106)
[2023-07-31] MEDS: ceFAZolin 2 GM/D5W50ml 50 ML IV ONE (06:43)
[2023-07-31] MEDS: ROPIVACAINE 0.5% (5MG/ML) 20ML AMPULE IJ ONE (06:57)
[2023-07-31 07:04] LABS: INR 1.15 (0.9-1.15); Partial Thromboplastin Time 31.2 SEC (24.5-34.5); Prothrombin Time 12.1 sec (9.3-11.8)
[2023-07-31] MEDS ORDERED: MIDAZOLAM HCL 2MG/2ML 2ml VIAL (1mg/ml) ONE (07:30)
[2023-07-31] MEDS ORDERED: fentaNYL CITRATE 100 MCG/2 ML VL ONE (07:30)
[2023-07-31] MEDS ORDERED: DexAMETHasone SOD PHOS 10MG/1ML VIAL INJ ONE (07:34)
[2023-07-31] MEDS ORDERED: PROPOFOL 10 MG/ML 20 ML IV ONE (07:34)
[2023-07-31] MEDS: ceFAZolin 1GM VL ONE (08:06)
[2023-07-31] MEDS: CALCIUM ACETATE 667 MG CAP PO SCH (18:44)
[2023-08-01] VITALS (8 sets, daily range): BP systolic 141–163; BP diastolic 71–96; PULSE 67–81; RESP 16–20; TEMP 97.7–98.1; O2SAT 92–98
[2023-08-01 05:42] LABS: Basophils # (auto) 0.1 10 ^3/uL (0-0.2); Eosinophils # (auto) 0 10 ^3/uL (0-0.8); Eosinophils % (auto) 0.2 % (0.0-7.0); Neutrophils # (auto) 7.3 10 ^3/uL (1.6-8.6); Nucleated Red Blood Cells % 0.1 %
[2023-08-01 05:45] LABS: Basophils % (auto) 0.8 % (0.0-2.0); Hematocrit 26.1 % (41.0-53.0); Hemoglobin 8.2 g/dL (13.5-17.5); Lymphocytes # (auto) 1.8 10 ^3/uL (0.4-5.4); Lymphocytes % (auto) 17.2 % (10.0-50.0); Mean Corpuscular Hemoglobin 21.4 pg (28.0-32.0); Mean Corpuscular Hgb Conc. 31.5 g/dL (32.0-36.0); Mean Corpuscular Volume 67.8 fL (80.0-100.0); Monocytes # (auto) 1.1 10 ^3/uL (0-1.3); Monocytes % (auto) 10.3 % (0.0-12.0); Neutrophils % (auto) 71.5 % (37.0-80.0); Red Blood Cells 3.85 10^6/uL (4.5-5.90); Red Cell Distribution Width 18.6 % (11.8-14.3); White Blood Cell 10.2 10^3/uL (4.4-10.8)
[2023-08-01 05:53] LABS: Anion Gap 13 (5-15); Carbon Dioxide 26 mmol/L (20-30); Chloride 94 mmol/L (98-107); Potassium 3.5 mmol/L (3.5-5.1); Sodium 133 mmol/L (136-145)
[2023-08-01 05:54] LABS: Calcium 8.4 mg/dL (8.7-10.4)
[2023-08-01 05:59] LABS: BUN/Creatinine Ratio 6.3 (10.0-20.0); Blood Urea Nitrogen 69 mg/dL (9-23); Glucose 233 mg/dL (74-106)
[2023-08-01 06:45] LABS: Hypochromia Moderate
[2023-08-01 06:46] LABS: Platelet Estimate Increased; Stomatocytes NO
[2023-08-01] MEDS: EPOETIN ALFA-EPBX 10,000 UNIT/1ML VIAL SC ONE (21:08)
[2023-08-02 01:00] VITALS: BP 155/76; PULSE 75; RESP 18; TEMP 97.6; O2SAT 92
[2023-08-02 05:00] VITALS: BP 146/75; PULSE 77; RESP 18; TEMP 97.6; O2SAT 96
[2023-08-02 06:57] LABS: Basophils # (auto) 0.1 10 ^3/uL (0-0.2); Eosinophils # (auto) 0.2 10 ^3/uL (0-0.8); Eosinophils % (auto) 2.5 % (0.0-7.0); Nucleated Red Blood Cells % 0.1 %
[2023-08-02 07:01] LABS: Basophils % (auto) 1.1 % (0.0-2.0); Hematocrit 25.1 % (41.0-53.0); Hemoglobin 7.9 g/dL (13.5-17.5); Lymphocytes # (auto) 1.4 10 ^3/uL (0.4-5.4); Lymphocytes % (auto) 17.1 % (10.0-50.0); Mean Corpuscular Hemoglobin 21.6 pg (28.0-32.0); Mean Corpuscular Hgb Conc. 31.4 g/dL (32.0-36.0); Mean Corpuscular Volume 68.8 fL (80.0-100.0); Monocytes # (auto) 0.6 10 ^3/uL (0-1.3); Neutrophils # (auto) 5.6 10 ^3/uL (1.6-8.6); Neutrophils % (auto) 71.3 % (37.0-80.0); Red Blood Cells 3.65 10^6/uL (4.5-5.90); Red Cell Distribution Width 18.2 % (11.8-14.3); White Blood Cell 7.9 10^3/uL (4.4-10.8)
[2023-08-02 07:07] LABS: Chloride 95 mmol/L (98-107); Potassium 3.6 mmol/L (3.5-5.1); Sodium 132 mmol/L (136-145)
[2023-08-02 07:08] LABS: Anion Gap 12 (5-15); Calcium 8.4 mg/dL (8.7-10.4); Carbon Dioxide 25 mmol/L (20-30)
[2023-08-02 07:13] LABS: BUN/Creatinine Ratio 6.2 (10.0-20.0); Blood Urea Nitrogen 70 mg/dL (9-23); Glucose 203 mg/dL (74-106)
[2023-08-02 08:00] VITALS: BP 155/84; PULSE 79; PULSE 80; RESP 16; TEMP 97.9
[2023-08-02 09:00] VITALS: BP 155/84; PULSE 80; RESP 16; TEMP 97.9; O2SAT 96
[2023-08-02 15:00] VITALS: BP 168/89; PULSE 80; RESP 18; TEMP 36.6; O2SAT 96
== END 2023-08-02 17:00 | disposition home health service (06) | DRG 463 ==
LOC: ER 16:08 → OVERFLOW 21:11 → CENTRAL 07-16 16:09 → TELE-CENTR 07-22 19:07
PROVIDERS: ADMIT Internal Medicine Geriatric Medicine; ATTEND Internal Medicine Geriatric Medicine
PROC: 0JBQ0ZZ Excision of Right Foot Subcutaneous Tissue and Fascia, Open Approach (ICD-10-PCS; 2023-07-17)
PROC: 0Y6Q0Z0 Detachment at Left 1st Toe, Complete, Open Approach (ICD-10-PCS; principal; 2023-07-17 10:29)
PROC: B54DZZA Ultrasonography of Bilateral Lower Extremity Veins, Guidance (ICD-10-PCS; 2023-07-18)
PROC: B41GYZZ Fluoroscopy of Left Lower Extremity Arteries using Other Contrast (ICD-10-PCS; 2023-07-18)
PROC: 0LBV0ZZ Excision of Right Foot Tendon, Open Approach (ICD-10-PCS; 2023-07-24)
PROC: 05HY33Z Insertion of Infusion Device into Upper Vein, Percutaneous Approach (ICD-10-PCS; 2023-07-25)
PROC: B54MZZA Ultrasonography of Right Upper Extremity Veins, Guidance (ICD-10-PCS; 2023-07-25)
PROC: 0LBV0ZZ Excision of Right Foot Tendon, Open Approach (ICD-10-PCS; 2023-07-31)
DX: T87.53 Necrosis of amputation stump, right lower extremity (principal); N18.6 End stage renal disease; E11.52 Type 2 diabetes mellitus with diabetic peripheral angiopathy with gangrene; L03.116 Cellulitis of left lower limb; I12.0 Hypertensive chronic kidney disease with stage 5 chronic kidney disease or end stage renal disease; M86.8X7 Other osteomyelitis, ankle and foot; E11.621 Type 2 diabetes mellitus with foot ulcer; E11.65 Type 2 diabetes mellitus with hyperglycemia; E66.9 Obesity, unspecified; D63.1 Anemia in chronic kidney disease; E11.69 Type 2 diabetes mellitus with other specified complication; E11.22 Type 2 diabetes mellitus with diabetic chronic kidney disease; L97.523 Non-pressure chronic ulcer of other part of left foot with necrosis of muscle; D50.9 Iron deficiency anemia, unspecified; R94.31 Abnormal electrocardiogram [ECG] [EKG]; I44.0 Atrioventricular block, first degree; T36.8X5A Adverse effect of other systemic antibiotics, initial encounter; I70.222 Atherosclerosis of native arteries of extremities with rest pain, left leg; S90.31XA Contusion of right foot, initial encounter; X58.XXXA Exposure to other specified factors, initial encounter; Z99.2 Dependence on renal dialysis; Z79.899 Other long term (current) drug therapy; Z98.61 Coronary angioplasty status; Z82.5 Family history of asthma and other chronic lower respiratory diseases; Z68.30 Body mass index [BMI] 30.0-30.9, adult; Z89.421 Acquired absence of other right toe(s); Y93.89 Activity, other specified; Y92.89 Other specified places as the place of occurrence of the external cause; Y99.8 Other external cause status
CPT/HCPCS: 36415; 36569; 71045; 73700; 73718; 75710; 76937; 80048; 80053; 80307; 81001; 82728; 82962; 83036; 83540; 83550; 83735; 84439; 84443; 85025; 85610; 85730; 86850; 86900; 86901; 87040; 87070; 87075; 87076; 87077; 87081; 87086; 87186; 87205; 93005; 93925; 97163; 99152; C1894; G0378; J0690; J1100; J1815; J2248; J2250; J2405; J2543; J2704; J3480; J3490; J7060; Q9967

== ENCOUNTER 2023-09-28 16:11 | Inpatient (IN) | payer MEDICARE, MEDICAID ==
[~2023-09-28] VITALS: Ht 182.9 cm; Wt 82.1 kg
[~2023-09-28 16:11] MED LIST changes: +ASPI-325 PO; +ATOR20TA50 PO; -CEFT1PM IV; +CIPR-214 PO; +CLOP75TA70 PO; +FURO40TA4 PO; +LEV50T PO
[2023-09-28 17:14] LABS: Basophils # (auto) 0 10 ^3/uL (0-0.2); Basophils % (auto) 0.3 % (0.0-2.0); Eosinophils # (auto) 0 10 ^3/uL (0-0.8); Hematocrit 28.4 % (41.0-53.0); Hemoglobin 9.2 g/dL (13.5-17.5); Lymphocytes # (auto) 1.4 10 ^3/uL (0.4-5.4); Lymphocytes % (auto) 8.8 % (10.0-50.0); Mean Corpuscular Hemoglobin 22.5 pg (28.0-32.0); Mean Corpuscular Hgb Conc. 32.4 g/dL (32.0-36.0); Mean Corpuscular Volume 69.4 fL (80.0-100.0); Monocytes # (auto) 0.8 10 ^3/uL (0-1.3); Monocytes % (auto) 4.7 % (0.0-12.0); Neutrophils % (auto) 86.2 % (37.0-80.0); Nucleated Red Blood Cells % 0.1 %; Red Cell Distribution Width 17.4 % (11.8-14.3); White Blood Cell 16.3 10^3/uL (4.4-10.8)
[2023-09-28 17:32] LABS: Albumin 3.2 g/dL (3.2-4.8); Alkaline Phosphatase 141 U/L (46-116); Anion Gap 15 (5-15); Aspartate Aminotransferase 19 U/L (13-40); BUN/Creatinine Ratio 3.8 (10.0-20.0); Bilirubin, Total < 0.2 mg/dL (0.2-1.0); Blood Urea Nitrogen 42 mg/dL (9-23); Carbon Dioxide 30 mmol/L (20-30); Chloride 86 mmol/L (98-107); Glucose 275 mg/dL (74-106); Lipase 24 U/L (12-53); Potassium 3.6 mmol/L (3.5-5.1); Sodium 131 mmol/L (136-145); Total Protein 8.6 g/dL (5.7-8.2)
[2023-09-28 17:42] LABS: Alanine Aminotransferase < 9 U/L (7-40); Lactic Acid w/Reflex 2.2 mmol/L (0.4-2.0)
[2023-09-28] MEDS: ONDANSETRON ODT 4 MG TAB PO ONE (19:00)
[2023-09-28] MEDS: SODIUM CHLORIDE 0.9% 1,000 ML IV ONE (19:10)
[2023-09-28] MEDS ORDERED: DOCUSATE SOD 100 MG CAP PO PRN (21:15)
[2023-09-28] MEDS ORDERED: ACETAMINOPHEN 325 MG TAB PO PRN (21:15)
[2023-09-28] MEDS ORDERED: HYDROcodone-ACET 5/325MG TAB PO PRN (21:15)
[2023-09-28] MEDS ORDERED: DEXTROSE (50%) 50ML SYRG IV PRN (21:30)
[2023-09-28 22:24] LABS: Lactic Acid w/Reflex 2.5 mmol/L (0.4-2.0)
[2023-09-28] MEDS: SODIUM CHLOR 0.9% PF (SALINE LOCK) 10ML VIAL/SYR IV SCH (22:45)
[2023-09-28] MEDS: LACTATED RINGER'S 500 ML IV ONE (22:45)
[2023-09-28] MEDS: PIPERACILLIN-TAZOB 2.25GM 50 ML IV SCH (22:50)
[2023-09-28] MEDS: ACCU-CHEK COMFORT CURVE STRIP VI SCH (22:55)
[2023-09-28] MEDS: METOPROLOL TARTRATE 50 MG TAB PO SCH (23:03)
[2023-09-28] MEDS: ATORVASTATIN 20 MG TAB PO SCH (23:04)
[2023-09-28] MEDS: metOLazone 5 MG TAB PO SCH (23:04)
[2023-09-28] MEDS: CALCIUM ACETATE 667 MG CAP PO SCH (23:04)
[2023-09-28] MEDS: hydrALAZINE HCL 25 MG TAB PO SCH (23:05)
[2023-09-28] MEDS: InsuLIN REG 1unit/0.01ml Soln (100units/ml) SC SCH (23:05)
[2023-09-29 04:10] VITALS: PULSE 88; RESP 11; O2SAT 98
[2023-09-29] MEDS: ONDANSETRON HCL 4 MG/2 ML VIAL IV PRN (04:26)
[2023-09-29] MEDS: amLODIPine BESYLATE 5 MG TAB PO ONE (05:09)
[2023-09-29] MEDS: hydrALAZINE HCL 20 MG/ML VL IV PRN (05:09)
[2023-09-29 06:07] LABS: COVID19 ANTIGEN SOFIA FIA NEGATIVE (NEGATIVE); Rapid Influenza A Negative (Negative); Rapid Influenza B Negative (Negative)
[2023-09-29] MEDS: LEVOTHYROXINE SODIUM 50 MCG TAB PO SCH (06:40)
[2023-09-29] MEDS ORDERED: SPIRONOLACTONE 25 MG TAB PO SCH (10:00)
[2023-09-29] MEDS: FUROSEMIDE 40 MG TAB PO SCH (10:30)
[2023-09-29] MEDS: glipiZIDE 5 MG TAB PO SCH (11:36)
[2023-09-29] MEDS ORDERED: VANCOMYCIN PER PHARMACY 0 MG IV SCH (11:45)
[2023-09-29 12:33] LABS: Basophils # (auto) 0.1 10 ^3/uL (0-0.2); Eosinophils # (auto) 0 10 ^3/uL (0-0.8); Monocytes # (auto) 0.9 10 ^3/uL (0-1.3); Neutrophils # (auto) 15.9 10 ^3/uL (1.6-8.6); Nucleated Red Blood Cells % 0.1 %
[2023-09-29 12:36] LABS: Basophils % (auto) 0.6 % (0.0-2.0); Eosinophils % (auto) 0.1 % (0.0-7.0); Hematocrit 28.9 % (41.0-53.0); Hemoglobin 9.2 g/dL (13.5-17.5); Lymphocytes % (auto) 10.5 % (10.0-50.0); Mean Corpuscular Hgb Conc. 31.8 g/dL (32.0-36.0); Mean Corpuscular Volume 69.3 fL (80.0-100.0); Monocytes % (auto) 4.7 % (0.0-12.0); Neutrophils % (auto) 84.1 % (37.0-80.0); Red Blood Cells 4.17 10^6/uL (4.5-5.90); Red Cell Distribution Width 17.5 % (11.8-14.3); White Blood Cell 18.9 10^3/uL (4.4-10.8)
[2023-09-29] MEDS: METOCLOPRAMIDE HCL 5MG/ml INJ 2ml VIAL IV ONE (13:03)
[2023-09-29] MEDS: cefTRIAXone 1GM/50ML D5W 50 ML IV ONE (13:04)
[2023-09-29] MEDS: LOSARTAN POTASSIUM 50 MG TAB PO SCH (13:30)
[2023-09-29] MEDS: ASPirin-EC 81 mg tab PO SCH (13:31)
[2023-09-29] MEDS: amLODIPine BESYLATE 5 MG TAB PO SCH (13:31)
[2023-09-29] MEDS: CLOPIDOGREL BISULFATE 75 MG TAB PO SCH (14:04)
[2023-09-29] MEDS: CALCIUM ACETATE 667 MG CAP PO SCH (14:04)
[2023-09-29] MEDS: CALCITRIOL 0.25 MCG CAP PO SCH (14:05)
[2023-09-29] MEDS: NIFEdipine ER 30 MG TAB PO SCH (14:05)
[2023-09-29] MEDS: VANCOMYCIN 1GM/200ML 200 ML IV ONE (14:18)
[2023-09-29 20:00] VITALS: BP 125/66; PULSE 78; PULSE 94; RESP 18; TEMP 98.4
[2023-09-30 01:07] VITALS: BP 147/85; PULSE 96; RESP 19; TEMP 97.8; O2SAT 95
[2023-09-30 05:00] VITALS: BP 141/67; PULSE 71; RESP 19; TEMP 98; O2SAT 94
[2023-09-30 05:20] VITALS: BP 137/72; PULSE 95; RESP 20; TEMP 98.6; O2SAT 98
[2023-09-30 05:51] LABS: Basophils # (auto) 0.1 10 ^3/uL (0-0.2); Eosinophils # (auto) 0 10 ^3/uL (0-0.8); Hemoglobin 9.1 g/dL (13.5-17.5); Lymphocytes # (auto) 2.3 10 ^3/uL (0.4-5.4); Lymphocytes % (auto) 12.9 % (10.0-50.0); Monocytes # (auto) 1.1 10 ^3/uL (0-1.3); Neutrophils # (auto) 14.1 10 ^3/uL (1.6-8.6); Red Blood Cells 4.13 10^6/uL (4.5-5.90); Red Cell Distribution Width 17.8 % (11.8-14.3)
[2023-09-30 05:54] LABS: Basophils % (auto) 0.5 % (0.0-2.0); Hematocrit 28.4 % (41.0-53.0); Mean Corpuscular Volume 68.7 fL (80.0-100.0); Monocytes % (auto) 6.1 % (0.0-12.0); Neutrophils % (auto) 80.5 % (37.0-80.0); White Blood Cell 17.5 10^3/uL (4.4-10.8)
[2023-09-30 06:09] LABS: Alkaline Phosphatase 133 U/L (46-116); Anion Gap 18 (5-15); Aspartate Aminotransferase 14 U/L (13-40); BUN/Creatinine Ratio 5.8 (10.0-20.0); Calcium 9.3 mg/dL (8.7-10.4); Carbon Dioxide 30 mmol/L (20-30); Chloride 85 mmol/L (98-107); Potassium 3.2 mmol/L (3.5-5.1); Sodium 133 mmol/L (136-145)
[2023-09-30 06:10] LABS: Albumin 2.7 g/dL (3.2-4.8); Bilirubin, Total < 0.2 mg/dL (0.2-1.0)
[2023-09-30 06:14] LABS: Glucose 135 mg/dL (74-106)
[2023-09-30 06:15] LABS: Alanine Aminotransferase < 9 U/L (7-40); Blood Urea Nitrogen 71 mg/dL (9-23)
[2023-09-30] MEDS: cefTRIAXone 1GM/50ML D5W 50 ML IV SCH (08:58)
[2023-09-30 09:05] VITALS: BP 134/79; PULSE 93; RESP 16; TEMP 99.1; O2SAT 98
== END 2023-09-30 10:00 | disposition left against medical advice (07) | DRG 871 ==
LOC: ER 16:11 → OVERFLOW 21:15 → WEST WING 09-29 23:49
PROVIDERS: ADMIT Internal Medicine; ATTEND Internal Medicine
DX: A41.9 Sepsis, unspecified organism (principal); K65.9 Peritonitis, unspecified; N18.6 End stage renal disease; E87.1 Hypo-osmolality and hyponatremia; I12.0 Hypertensive chronic kidney disease with stage 5 chronic kidney disease or end stage renal disease; N39.0 Urinary tract infection, site not specified; D64.9 Anemia, unspecified; E11.22 Type 2 diabetes mellitus with diabetic chronic kidney disease; E11.65 Type 2 diabetes mellitus with hyperglycemia; Z20.822 Contact with and (suspected) exposure to COVID-19; R33.9 Retention of urine, unspecified; E11.40 Type 2 diabetes mellitus with diabetic neuropathy, unspecified; K52.9 Noninfective gastroenteritis and colitis, unspecified; Z82.5 Family history of asthma and other chronic lower respiratory diseases; Z99.2 Dependence on renal dialysis
CPT/HCPCS: 36415; 71045; 73630; 76705; 76775; 80053; 80202; 82728; 82962; 83540; 83550; 83605; 83690; 83880; 84484; 85025; 87040; 87081; 87426; 87804; 96360; G0378; J1815; J2405; J2543; Q0162

== ENCOUNTER 2023-11-10 17:24 | Inpatient (IN) | payer MEDICARE, MEDICAID ==
[~2023-11-10] VITALS: Ht 182.9 cm; Wt 83.6 kg
[~2023-11-10 17:24] MED LIST changes: +AMIT25TA20 PO; +ATOR-507 PO; +B-CO1TAB60 PO; +CLOP75TA28 PO; +FURO1TAB77 PO; +GABA-1250 PO; -HYDR-4298 PO; +HYDR100T10 PO; +HYDRX10T PO; -LEV50T PO; +LEVO-848 PO; +LEVO50TA7 PO; +METO-159 PO; +NIFE1TAB30 PO; +TRI05TP TOP
[2023-11-10 19:45] LABS: Basophils # (auto) 0 10 ^3/uL (0-0.2); Basophils % (auto) 0.3 % (0.0-2.0); Eosinophils # (auto) 0.2 10 ^3/uL (0-0.8); Eosinophils % (auto) 1.3 % (0.0-7.0); Hematocrit 26.3 % (41.0-53.0); Hemoglobin 8.1 g/dL (13.5-17.5); Lymphocytes # (auto) 2.1 10 ^3/uL (0.4-5.4); Mean Corpuscular Hemoglobin 20.9 pg (28.0-32.0); Mean Corpuscular Hgb Conc. 30.7 g/dL (32.0-36.0); Mean Corpuscular Volume 68.2 fL (80.0-100.0); Monocytes # (auto) 0.8 10 ^3/uL (0-1.3); Monocytes % (auto) 5.6 % (0.0-12.0); Neutrophils # (auto) 10.8 10 ^3/uL (1.6-8.6); Neutrophils % (auto) 77.8 % (37.0-80.0); Nucleated Red Blood Cells % 0.3 %; Platelet Count (auto) 450 10^3/uL (140-450); Red Blood Cells 3.86 10^6/uL (4.5-5.90); Red Cell Distribution Width 16.9 % (11.8-14.3); White Blood Cell 13.9 10^3/uL (4.4-10.8)
[2023-11-10 19:55] LABS: Alanine Aminotransferase 17 U/L (7-40); Albumin 2.7 g/dL (3.2-4.8); Alkaline Phosphatase 91 U/L (46-116); Anion Gap 14 (5-15); Aspartate Aminotransferase 21 U/L (13-40); BUN/Creatinine Ratio 6.4 (10.0-20.0); Bilirubin, Total < 0.2 mg/dL (0.2-1.0); Blood Urea Nitrogen 78 mg/dL (9-23); Calcium 8.2 mg/dL (8.7-10.4); Carbon Dioxide 25 mmol/L (20-30); Chloride 96 mmol/L (98-107); Glucose 173 mg/dL (74-106); Potassium 2.6 mmol/L (3.5-5.1); Sodium 135 mmol/L (136-145); Total Protein 7.2 g/dL (5.7-8.2)
[2023-11-10 20:12] LABS: CRP High Sensitivity 15.47 mg/dL (<1.0)
[2023-11-10 20:31] LABS: Erythrocyte Sedimentation Rate 10 mm/hr (0-20)
[2023-11-10] MEDS ORDERED: SODIUM CHLORIDE 0.9% 1,000 ML IV ONE (20:45)
[2023-11-10 20:52] LABS: Anisocytosis Slight; Large Platelets FEW; Platelet Estimate Adequa; Target Cell FEW
[2023-11-10 21:56] LABS: INR 1.13 (0.9-1.15); Partial Thromboplastin Time 29.6 SEC (24.5-34.5); Prothrombin Time 11.9 sec (9.3-11.8)
[2023-11-11] MEDS: POTASSIUM CHL 20 Meq TABLET PO ONE (01:07)
[2023-11-11 01:14] VITALS: PULSE 74; RESP 18; O2SAT 100
[2023-11-11] MEDS: SODIUM CHLORIDE 0.9% 500 ML IV ONE (01:14)
[2023-11-11] MEDS: cloNIDine HCL 0.1 MG TAB PO ONE (11:39)
[2023-11-11 12:15] LABS: Basophils # (auto) 0.1 10 ^3/uL (0-0.2); Basophils % (auto) 0.6 % (0.0-2.0); Eosinophils # (auto) 0.1 10 ^3/uL (0-0.8); Eosinophils % (auto) 0.8 % (0.0-7.0); Hematocrit 28.8 % (41.0-53.0); Lymphocytes # (auto) 1.9 10 ^3/uL (0.4-5.4); Mean Corpuscular Hemoglobin 21.6 pg (28.0-32.0); Mean Corpuscular Hgb Conc. 31.3 g/dL (32.0-36.0); Mean Corpuscular Volume 68.9 fL (80.0-100.0); Monocytes # (auto) 0.7 10 ^3/uL (0-1.3); Monocytes % (auto) 4.4 % (0.0-12.0); Neutrophils # (auto) 12.8 10 ^3/uL (1.6-8.6); Neutrophils % (auto) 82.2 % (37.0-80.0); Nucleated Red Blood Cells % 0.2 %; Platelet Count (auto) 516 10^3/uL (140-450); Red Blood Cells 4.18 10^6/uL (4.5-5.90); Red Cell Distribution Width 17.7 % (11.8-14.3); White Blood Cell 15.6 10^3/uL (4.4-10.8)
[2023-11-11] MEDS ORDERED: ACETAMINOPHEN 325 MG TAB PO PRN (12:30)
[2023-11-11] MEDS ORDERED: ONDANSETRON HCL 4 MG/2 ML VIAL IV PRN (12:30)
[2023-11-11] MEDS ORDERED: DOCUSATE SOD 100 MG CAP PO PRN (12:30)
[2023-11-11 12:33] LABS: Alanine Aminotransferase 15 U/L (7-40); Albumin 2.8 g/dL (3.2-4.8); Alkaline Phosphatase 108 U/L (46-116); Anion Gap 14 (5-15); Aspartate Aminotransferase 19 U/L (13-40); Blood Urea Nitrogen 73 mg/dL (9-23); Calcium 8.3 mg/dL (8.7-10.4); Carbon Dioxide 22 mmol/L (20-30); Chloride 97 mmol/L (98-107); Glucose 230 mg/dL (74-106); Potassium 3.2 mmol/L (3.5-5.1); Sodium 133 mmol/L (136-145)
[2023-11-11 12:34] LABS: Bilirubin, Total < 0.2 mg/dL (0.2-1.0); Total Protein 7.7 g/dL (5.7-8.2)
[2023-11-11] MEDS: SODIUM CHLOR 0.9% PF (SALINE LOCK) 10ML VIAL/SYR IV SCH (14:03)
[2023-11-11] MEDS: ceFAZolin 1GM/50ML 50 ML IV SCH (15:50)
[2023-11-11] MEDS: LABETALOL HCL 20 MG/4 ML VL IV PRN (15:54)
[2023-11-12] MEDS: cloNIDine HCL 0.1 MG TAB PO ONE (00:59)
[2023-11-12] MEDS ORDERED: DEXTROSE (50%) 50ML SYRG IV PRN (01:00)
[2023-11-12] MEDS: hydrALAZINE HCL 20 MG/ML VL IV ONE (05:29)
[2023-11-12] MEDS: ACCU-CHEK COMFORT CURVE STRIP VI SCH (06:40)
[2023-11-12] MEDS: InsuLIN REG 1unit/0.01ml Soln (100units/ml) SC SCH ×2 (06:46→22:41)
[2023-11-12 08:06] VITALS: PULSE 96; RESP 16; O2SAT 99
[2023-11-12 09:13] LABS: Basophils # (auto) 0.1 10 ^3/uL (0-0.2); Eosinophils # (auto) 0.2 10 ^3/uL (0-0.8); Hemoglobin 8.2 g/dL (13.5-17.5); Monocytes # (auto) 0.9 10 ^3/uL (0-1.3); Monocytes % (auto) 6.1 % (0.0-12.0); White Blood Cell 14.1 10^3/uL (4.4-10.8)
[2023-11-12 09:15] LABS: Basophils % (auto) 0.5 % (0.0-2.0); Eosinophils % (auto) 1.1 % (0.0-7.0); Hematocrit 26.3 % (41.0-53.0); Lymphocytes # (auto) 1.9 10 ^3/uL (0.4-5.4); Lymphocytes % (auto) 13.3 % (10.0-50.0); Mean Corpuscular Hemoglobin 20.9 pg (28.0-32.0); Mean Corpuscular Volume 67.3 fL (80.0-100.0); Neutrophils # (auto) 11.1 10 ^3/uL (1.6-8.6); Nucleated Red Blood Cells % 0.2 %; Platelet Count (auto) 442 10^3/uL (140-450); Red Blood Cells 3.91 10^6/uL (4.5-5.90)
[2023-11-12 09:23] LABS: Alanine Aminotransferase 13 U/L (7-40); Albumin 2.5 g/dL (3.2-4.8); Alkaline Phosphatase 90 U/L (46-116); Anion Gap 13 (5-15); Aspartate Aminotransferase 14 U/L (13-40); BUN/Creatinine Ratio 6.6 (10.0-20.0); Carbon Dioxide 23 mmol/L (20-30); Chloride 98 mmol/L (98-107); Glucose 169 mg/dL (74-106); Potassium 3.6 mmol/L (3.5-5.1); Sodium 134 mmol/L (136-145)
[2023-11-12 09:24] LABS: Bilirubin, Total < 0.2 mg/dL (0.2-1.0); Total Protein 6.9 g/dL (5.7-8.2)
[2023-11-12 09:30] LABS: Blood Urea Nitrogen 83 mg/dL (9-23)
[2023-11-12] MEDS: PANTOPRAZOLE 40 MG/10 ML VIAL INJ IV SCH (09:59)
[2023-11-12] MEDS: B-COMPLEX W/ C & FOLIC ACID(NEPHROVITE TAB) PO ONE (12:57)
[2023-11-12 20:00] VITALS: PULSE 92; RESP 16; O2SAT 99
[2023-11-12 21:44] VITALS: PULSE 84; RESP 18; O2SAT 100
[2023-11-12 21:45] VITALS: BP 149/83; PULSE 85; RESP 20; TEMP 98.9; O2SAT 88
[2023-11-12 22:10] VITALS: BP 149/83; PULSE 84; RESP 19; TEMP 98.9; O2SAT 100
[2023-11-13] VITALS (21 sets, daily range): BP systolic 139–215; BP diastolic 74–108; PULSE 73–96; RESP 14–20; TEMP 97.6–98.9; O2SAT 88–100
[2023-11-13] MEDS ORDERED: MORPHINE SULF PF 5 MG/10 ML VIAL ONE (07:51)
[2023-11-13] MEDS ORDERED: MIDAZOLAM HCL 2MG/2ML 2ml VIAL (1mg/ml) ONE (08:02)
[2023-11-13] MEDS ORDERED: fentaNYL CITRATE 100 MCG/2 ML VL ONE (08:02)
[2023-11-13] MEDS: ceFAZolin 1GM VL ONE (08:40)
[2023-11-13] MEDS ORDERED: HYDROmorphone HCL 2 MG/ML VL/or syr IV PRN (09:30)
[2023-11-13] MEDS ORDERED: ONDANSETRON HCL 4 MG/2 ML VIAL IV PRN (09:30)
[2023-11-13] MEDS ORDERED: NALOXONE HCL 0.4 MG/ML VIAL IV PRN (09:30)
[2023-11-13] MEDS ORDERED: DexAMETHasone SOD PHOS 10MG/1ML VIAL INJ IV PRN (09:30)
[2023-11-13] MEDS ORDERED: ONDANSETRON HCL 4 MG/2 ML VIAL ONE (11:49)
[2023-11-13] MEDS: BACITRACIN TOP OINT 1 UD PKG TOP ONE (12:32)
[2023-11-13] MEDS: ceFAZolin 2 GM/D5W50ml 50 ML IV ONE (12:32)
[2023-11-13] MEDS: ROPIVACAINE 0.5% (5MG/ML) 20ML AMPULE IJ ONE (12:33)
[2023-11-13] MEDS: NALBUPHINE HCL 10 MG/1ml INJECTION SUBCUT ONE (12:33)
[2023-11-13] MEDS: TETRACAINE 1% INJ 2 ML VIAL IJ ONE (12:33)
[2023-11-13] MEDS: POVIDONE IODINE 10 % TOPICAL OINT 30GM TOP ONE (12:33)
[2023-11-13] MEDS: diphenhdrAMINE HCL 50 MG/1 ML VL IV PRN (12:56)
[2023-11-13] MEDS: IRON SUCROSE COMPLEX 100 ML IV ONE (12:56)
[2023-11-13] MEDS: LOSARTAN POTASSIUM 50 MG TAB PO SCH (12:58)
[2023-11-13] MEDS: NIFEdipine ER 30 MG TAB PO SCH (12:58)
[2023-11-13 14:01] LABS: Basophils # (auto) 0 10 ^3/uL (0-0.2); Basophils % (auto) 0.3 % (0.0-2.0); Eosinophils # (auto) 0.2 10 ^3/uL (0-0.8); Eosinophils % (auto) 1.5 % (0.0-7.0); Hemoglobin 7.7 g/dL (13.5-17.5)
[2023-11-13 14:09] LABS: Hematocrit 25.2 % (41.0-53.0); Lymphocytes # (auto) 1.7 10 ^3/uL (0.4-5.4); Lymphocytes % (auto) 13.1 % (10.0-50.0); Mean Corpuscular Hemoglobin 21.6 pg (28.0-32.0); Mean Corpuscular Hgb Conc. 30.4 g/dL (32.0-36.0); Mean Corpuscular Volume 70.9 fL (80.0-100.0); Monocytes # (auto) 0.9 10 ^3/uL (0-1.3); Neutrophils % (auto) 78.1 % (37.0-80.0); Nucleated Red Blood Cells % 0.5 %; Platelet Count (auto) 434 10^3/uL (140-450); Red Blood Cells 3.55 10^6/uL (4.5-5.90); White Blood Cell 12.7 10^3/uL (4.4-10.8)
[2023-11-13 14:16] LABS: Alanine Aminotransferase 11 U/L (7-40); Albumin 2.2 g/dL (3.2-4.8); Alkaline Phosphatase 92 U/L (46-116); Anion Gap 16 (5-15); Aspartate Aminotransferase 27 U/L (13-40); BUN/Creatinine Ratio 6.5 (10.0-20.0); Blood Urea Nitrogen 79 mg/dL (9-23); Calcium 7.3 mg/dL (8.7-10.4); Carbon Dioxide 21 mmol/L (20-30); Chloride 100 mmol/L (98-107); Glucose 124 mg/dL (74-106); Potassium 3.9 mmol/L (3.5-5.1); Sodium 137 mmol/L (136-145)
[2023-11-13 14:17] LABS: Bilirubin, Total < 0.2 mg/dL (0.2-1.0); Total Protein 6.4 g/dL (5.7-8.2)
[2023-11-13] MEDS ORDERED: cloNIDine 0.2 mg/24hr 7DAY PATCH TD ONE (23:15)
[2023-11-13] MEDS: hydrOXYzine HCL 10 MG TAB PO ONE (23:46)
[2023-11-14] VITALS (17 sets, daily range): BP systolic 138–198; BP diastolic 56–104; PULSE 81–100; RESP 15–19; TEMP 97.5–98.1; O2SAT 90–98
[2023-11-14] MEDS: cloNIDine HCL 0.1 MG TAB PO ONE (00:15)
[2023-11-14 07:12] LABS: Basophils # (auto) 0.1 10 ^3/uL (0-0.2); Basophils % (auto) 0.6 % (0.0-2.0); Eosinophils # (auto) 0.2 10 ^3/uL (0-0.8); Eosinophils % (auto) 1.8 % (0.0-7.0); Hematocrit 23.1 % (41.0-53.0); Hemoglobin 7.2 g/dL (13.5-17.5); Lymphocytes # (auto) 1.3 10 ^3/uL (0.4-5.4); Lymphocytes % (auto) 11.4 % (10.0-50.0); Mean Corpuscular Hemoglobin 21.6 pg (28.0-32.0); Mean Corpuscular Hgb Conc. 31.3 g/dL (32.0-36.0); Mean Corpuscular Volume 69.1 fL (80.0-100.0); Monocytes # (auto) 0.8 10 ^3/uL (0-1.3); Monocytes % (auto) 6.9 % (0.0-12.0); Neutrophils # (auto) 8.8 10 ^3/uL (1.6-8.6); Neutrophils % (auto) 79.3 % (37.0-80.0); Nucleated Red Blood Cells % 0.4 %; Platelet Count (auto) 381 10^3/uL (140-450); Red Blood Cells 3.34 10^6/uL (4.5-5.90); Red Cell Distribution Width 17.9 % (11.8-14.3); White Blood Cell 11.1 10^3/uL (4.4-10.8)
[2023-11-14 07:34] LABS: Albumin 2.3 g/dL (3.2-4.8); Alkaline Phosphatase 82 U/L (46-116); Anion Gap 12 (5-15); Aspartate Aminotransferase 22 U/L (13-40); BUN/Creatinine Ratio 5.4 (10.0-20.0); Calcium 7.6 mg/dL (8.7-10.4); Carbon Dioxide 24 mmol/L (20-30); Chloride 98 mmol/L (98-107); Potassium 3.1 mmol/L (3.5-5.1); Sodium 134 mmol/L (136-145); Total Protein 6.4 g/dL (5.7-8.2)
[2023-11-14 07:40] LABS: Blood Urea Nitrogen 59 mg/dL (9-23); Glucose 226 mg/dL (74-106)
[2023-11-14 07:41] LABS: Alanine Aminotransferase < 9 U/L (7-40); Bilirubin, Total < 0.2 mg/dL (0.2-1.0)
[2023-11-14] MEDS: KETOROLAC TROMETH 30 MG/ML 1ML VIAL IV PRN (10:38)
[2023-11-14] MEDS: HYDROcodone-ACET 5/325MG TAB PO PRN (11:57)
[2023-11-14] MEDS: NIFEdipine ER 30 MG TAB PO SCH (12:00)
[2023-11-14] MEDS: hydrALAZINE HCL 25 MG TAB PO SCH (15:15)
[2023-11-14] MEDS: HYDROmorphone HCL 2 MG/ML VL/or syr IV PRN (20:36)
[2023-11-15 01:00] VITALS: BP 146/79; PULSE 87; RESP 16; TEMP 97.8; O2SAT 98
[2023-11-15 05:00] VITALS: BP 150/73; PULSE 96; RESP 17; TEMP 98.4; O2SAT 96
[2023-11-15 08:00] VITALS: PULSE 93
[2023-11-15 09:00] VITALS: BP 160/99; PULSE 68; RESP 16; TEMP 98.5; O2SAT 94
[2023-11-15 10:59] LABS: Basophils # (auto) 0 10 ^3/uL (0-0.2); Basophils % (auto) 0.4 % (0.0-2.0); Eosinophils # (auto) 0.3 10 ^3/uL (0-0.8); Eosinophils % (auto) 2.8 % (0.0-7.0); Hematocrit 22.7 % (41.0-53.0); Hemoglobin 7.2 g/dL (13.5-17.5); Lymphocytes # (auto) 1.8 10 ^3/uL (0.4-5.4); Lymphocytes % (auto) 14.6 % (10.0-50.0); Mean Corpuscular Hemoglobin 21.8 pg (28.0-32.0); Mean Corpuscular Hgb Conc. 31.7 g/dL (32.0-36.0); Mean Corpuscular Volume 68.9 fL (80.0-100.0); Monocytes # (auto) 0.8 10 ^3/uL (0-1.3); Monocytes % (auto) 6.9 % (0.0-12.0); Neutrophils % (auto) 75.3 % (37.0-80.0); Nucleated Red Blood Cells % 0.4 %; Platelet Count (auto) 388 10^3/uL (140-450); Red Cell Distribution Width 18.5 % (11.8-14.3)
[2023-11-15 11:41] LABS: Albumin 2.3 g/dL (3.2-4.8); Alkaline Phosphatase 99 U/L (46-116); Anion Gap 11 (5-15); Aspartate Aminotransferase 25 U/L (13-40); BUN/Creatinine Ratio 5.8 (10.0-20.0); Blood Urea Nitrogen 62 mg/dL (9-23); Calcium 7.4 mg/dL (8.7-10.4); Carbon Dioxide 26 mmol/L (20-30); Chloride 98 mmol/L (98-107); Glucose 140 mg/dL (74-106); Potassium 3.3 mmol/L (3.5-5.1); Sodium 135 mmol/L (136-145)
[2023-11-15 11:42] LABS: Bilirubin, Total < 0.2 mg/dL (0.2-1.0); Total Protein 6.5 g/dL (5.7-8.2)
[2023-11-15] MEDS ORDERED: CEFD300C2 PO (11:43)
[2023-11-15] MEDS ORDERED: HYDR-4798 PO (11:43)
[2023-11-15] MEDS ORDERED: ALPR1TAB2 PO (11:43)
[2023-11-15] MEDS ORDERED: CLIN1CAP70 PO (11:43)
[2023-11-15 11:54] LABS: Alanine Aminotransferase < 9 U/L (7-40)
[2023-11-15 13:00] VITALS: BP 155/80; PULSE 60; RESP 14; TEMP 98.3; O2SAT 94
[2023-11-15 15:28] VITALS: BP 126/66; PULSE 90
[2023-11-15] MEDS ORDERED: PROPOFOL 10 MG/ML 20 ML IV ONE (16:10)
[2023-11-15] MEDS ORDERED: EPOETIN ALFA-EPBX 10,000 UNIT/1ML VIAL SC ONE (21:00)
== END 2023-11-15 16:11 | disposition home health service (06) | DRG 853 ==
LOC: ER 17:24 → OVERFLOW 11-11 12:21 → WEST WING 11-12 21:33 → TELE-WESTW 11-14 19:47
PROVIDERS: ADMIT Internal Medicine; ATTEND Family Medicine
PROC: 0Y6N0Z0 Detachment at Left Foot, Complete, Open Approach (ICD-10-PCS; principal; 2023-11-13 07:53)
PROC: 0Y6H0Z3 Detachment at Right Lower Leg, Low, Open Approach (ICD-10-PCS; 2023-11-13 07:53)
DX: A41.9 Sepsis, unspecified organism (principal); N18.6 End stage renal disease; E44.0 Moderate protein-calorie malnutrition; M86.9 Osteomyelitis, unspecified; I12.0 Hypertensive chronic kidney disease with stage 5 chronic kidney disease or end stage renal disease; E11.52 Type 2 diabetes mellitus with diabetic peripheral angiopathy with gangrene; E11.621 Type 2 diabetes mellitus with foot ulcer; L97.529 Non-pressure chronic ulcer of other part of left foot with unspecified severity; L97.519 Non-pressure chronic ulcer of other part of right foot with unspecified severity; E11.69 Type 2 diabetes mellitus with other specified complication; E11.22 Type 2 diabetes mellitus with diabetic chronic kidney disease; D63.1 Anemia in chronic kidney disease; J45.909 Unspecified asthma, uncomplicated; Z99.2 Dependence on renal dialysis; Z91.199 Patient's noncompliance with other medical treatment and regimen due to unspecified reason; Z79.899 Other long term (current) drug therapy; Z79.4 Long term (current) use of insulin; Z82.5 Family history of asthma and other chronic lower respiratory diseases; Z68.25 Body mass index [BMI] 25.0-25.9, adult
CPT/HCPCS: 36415; 73700; 80053; 82962; 85025; 85610; 85652; 85730; 86141; 86850; 86900; 86901; 87040; 87081; 97110; 97163; 97530; G0378; J0690; J1756; J1815; J1885; J2250; J2405; J2470; J2704